=== PATIENT | male | born 1960 | race Caucasian/White ===

== ENCOUNTER 2017-12-19 14:14 | Inpatient (IN) | payer BC ==
[2017-12-19] MEDS ORDERED: LORazepam 1 MG TABLET PO (15:00)
[2017-12-19] MEDS: IV NORMAL SALINE 1000ML BAG 1,000 ML IV (15:12)
[2017-12-19] MEDS: chlordiazePOXIDE HCL 25 MG CAPSULE PO ×2 (15:14→20:41)
[2017-12-19 15:53] LABS: ADD MAN DIFF? NO
[2017-12-19 16:00] LABS: BASO # 0.1 x10^3/uL (0.0-0.2); BASO % 1 % (0-3); EOS % 0 % (0-3); HEMATOCRIT 42.2 % (39.0-53.0); HEMOGLOBIN 15.3 g/dL (13.0-17.5); LYMPH # 0.5 x10^3/uL (1.0-4.8); LYMPH % 7 % (24-48); MEAN CORPUSCULAR HEMOGLOBIN 35 pg (25-35); MEAN CORPUSCULAR HGB CONC 36 g/dL (31-37); MEAN CORPUSCULAR VOLUME 97 fL (79-100); MONO # 0.2 x10^3/uL (0.0-1.1); MONO % 2 % (0-9); NEUT # 7.4 x10^3uL (1.8-7.7); NEUT % 90 % (31-73); PLATELET COUNT 123 x10^3/uL (140-400); RED BLOOD COUNT 4.33 x10^6/uL (4.30-5.70); RED CELL DISTRIBUTION WIDTH 13.2 % (11.5-14.5); WHITE BLOOD COUNT 8.2 x10^3/uL (4.0-11.0)
[2017-12-19] MEDS ORDERED: PROPOFOL 10 MG/ML (20ML) VIAL. IV (16:00)
[2017-12-19] MEDS ORDERED: SUCCINYLCHOLINE 200 MG/10 ML VIAL. (16:00)
[2017-12-19] MEDS ORDERED: IPRATRPIUM/ALBUTEROL 0.5/2.5MG 3 ML NEBU. NEB (16:00)
[2017-12-19 16:12] LABS: ALBUMIN 2.3 g/dL (3.4-5.0); ALBUMIN/GLOBULIN RATIO 0.5 (1.0-1.7); ALK PHOS 58 U/L (46-116); ALT (SGPT) 34 U/L (16-63); ANION GAP 9 (6-14); AST (SGOT) 96 U/L (15-37); BLOOD UREA NITROGEN 20 mg/dL (8-26); BUN/CREATININE RATIO 15 (6-20); CALCIUM 7.2 mg/dL (8.5-10.1); CARBON DIOXIDE 26 mmol/L (21-32); CHLORIDE 96 mmol/L (98-107); CREATININE 1.3 mg/dL (0.7-1.3); GFR 57.3; GLUCOSE 148 mg/dL (70-99); POTASSIUM 3.1 mmol/L (3.5-5.1); SODIUM 131 mmol/L (136-145); TOTAL BILIRUBIN 0.9 mg/dL (0.2-1.0)
[2017-12-19] MEDS: HALOPERIDOL LACTATE 5 MG/ML VIAL. IVP ×2 (17:17→19:30)
[2017-12-19] MEDS ORDERED: IBUPROFEN 800 MG TABLET. PO (17:30)
[2017-12-19] MEDS ORDERED: VANCOMYCIN 1 GM in IV DEXTROSE 5% 250 ML IV (17:45)
[2017-12-19] MEDS: IPRATRPIUM/ALBUTEROL 0.5/2.5MG 3 ML NEBU. NEB (18:03)
[2017-12-19 18:06] LABS: VITAMIN-B12 586 pg/mL (247-911)
[2017-12-19] MEDS: POTASSIUM CL 40MEQ IN 0.9%NACL 1,000 ML IV (18:14)
[2017-12-19] MEDS: PIPERACILLIN/TAZOBACTAM 3.375 GM in IV NORMAL SALINE 50ML 50 ML IV ×2 (18:15→23:30)
[2017-12-19] MEDS ORDERED: DEXTROSE 50% 25 GM / 50ML DISP.SYRIN. IV (18:15)
[2017-12-19] MEDS: VANCOMYCIN PER PHARMACY MC (18:21)
[2017-12-19] MEDS ORDERED: HALOPERIDOL LACTATE 5 MG/ML VIAL. IVP (20:15)
[2017-12-19] MEDS: ACETAMINOPHEN 325 MG TABLET. PO (20:41)
[2017-12-19] MEDS: ZOLPIDEM 5 MG TABLET. PO (20:41)
[2017-12-19] MEDS: OLANZapine 5 MG TABLET PO (20:41)
[2017-12-19] MEDS: LACTOBACILLUS RHAMNOSUS GG 1 CAPSULE. PO (20:41)
[2017-12-19] MEDS: ACYCLOVIR SODIUM IV (21:58)
[2017-12-19] MEDS: NORMAL SALINE IV (21:58)
[2017-12-19] MEDS: VANCOMYCIN 1.5 GM in IV 1/2 NORMAL SALINE 500 ML IV (21:58)
[2017-12-19 22:35] LABS: BARBITURATES NEG (NEG); BENZODIAZEPINES NEG (NEG); CANNABINOIDS NEG (NEG); COCAINE NEG (NEG); METHADONE NEG (NEG); OPIATES POS (NEG); PHENCYCLIDINE NEG (NEG)
[2017-12-19 22:37] LABS: AMPHETAMINE/METHAMPHETAMINE NEG (NEG); ETHANOL, URINE NEG (NEG)
[2017-12-20] MEDS: IPRATRPIUM/ALBUTEROL 0.5/2.5MG 3 ML NEBU. NEB ×5 (00:10→20:01)
[2017-12-20] MEDS: HALOPERIDOL LACTATE 5 MG/ML VIAL. IVP (01:48)
[2017-12-20 01:53] LABS: BASE EXCESS ABG -2 mmol/L (-3-3); HCO3 ABG 21 mmol/L (21-28); PCO2 ABG 31 mmHg (35-46); PH ABG 7.46 (7.35-7.45); PO2 ABG 72 mmHg (75-108); SAT O2 ABG 95 % (92-99)
[2017-12-20 01:57] LABS: FIO2 ABG 70
[2017-12-20] MEDS ORDERED: fentaNYL PF VIAL 100 MCG/2 ML VIAL IV ×2 (02:15)
[2017-12-20] MEDS ORDERED: PROPOFOL 100 ML IV ×2 (02:15)
[2017-12-20] MEDS: PROPOFOL 100 ML IV ×6 (03:18→20:04)
[2017-12-20] MEDS: ACETAMINOPHEN 325 MG TABLET. PO ×2 (04:27→10:14)
[2017-12-20] MEDS: chlordiazePOXIDE HCL 25 MG CAPSULE PO ×4 (04:27→21:00)
[2017-12-20 04:41] LABS: BASO % 0 % (0-3); EOS % 0 % (0-3); HEMATOCRIT 37.1 % (39.0-53.0); HEMOGLOBIN 13.2 g/dL (13.0-17.5); LYMPH # 0.4 x10^3/uL (1.0-4.8); LYMPH % 5 % (24-48); MEAN CORPUSCULAR HEMOGLOBIN 35 pg (25-35); MEAN CORPUSCULAR HGB CONC 36 g/dL (31-37); MEAN CORPUSCULAR VOLUME 97 fL (79-100); MONO # 0.2 x10^3/uL (0.0-1.1); MONO % 2 % (0-9); NEUT # 7.9 x10^3uL (1.8-7.7); NEUT % 93 % (31-73); PLATELET COUNT 123 x10^3/uL (140-400); RED BLOOD COUNT 3.82 x10^6/uL (4.30-5.70); RED CELL DISTRIBUTION WIDTH 13.2 % (11.5-14.5); WHITE BLOOD COUNT 8.6 x10^3/uL (4.0-11.0)
[2017-12-20 04:50] LABS: ADD MAN DIFF? YES
[2017-12-20 04:57] LABS: ANION GAP 9 (6-14); BLOOD UREA NITROGEN 17 mg/dL (8-26); CALCIUM 7.1 mg/dL (8.5-10.1); CARBON DIOXIDE 23 mmol/L (21-32); CHLORIDE 101 mmol/L (98-107); CREATININE 1.2 mg/dL (0.7-1.3); GFR 62.9; GLUCOSE 178 mg/dL (70-99); POTASSIUM 3.7 mmol/L (3.5-5.1); SODIUM 133 mmol/L (136-145)
[2017-12-20 05:19] LABS: % BANDS 23 % (0-9); % LYMPHS 8 % (24-48); % MONOS 1 % (0-10); % SEGS 68 % (35-66)
[2017-12-20 05:20] LABS: PLT ESTIMATE DECREASED (ADEQUATE)
[2017-12-20] MEDS: PIPERACILLIN/TAZOBACTAM 3.375 GM in IV NORMAL SALINE 50ML 50 ML IV ×4 (05:25→23:20)
[2017-12-20] MEDS: ACYCLOVIR SODIUM IV ×3 (05:25→21:49)
[2017-12-20] MEDS: NORMAL SALINE IV ×3 (05:25→21:49)
[2017-12-20] MEDS: POTASSIUM CL 40MEQ IN 0.9%NACL 1,000 ML IV ×2 (05:30→14:30)
[2017-12-20] MEDS: DULoxetine HCL 30 MG CAPSULE.DR PO (07:29)
[2017-12-20] MEDS ORDERED: PANTOPRAZOLE 40 MG TABLET.DR. PO (07:30)
[2017-12-20 07:57] LABS: BASE EXCESS ABG -3 mmol/L (-3-3); HCO3 ABG 22 mmol/L (21-28); PCO2 ABG 40 mmHg (35-46); PH ABG 7.36 (7.35-7.45); PO2 ABG 65 mmHg (75-108); SAT O2 ABG 92 % (92-99)
[2017-12-20 08:00] LABS: FIO2 ABG 90
[2017-12-20] MEDS: INSULIN LISPRO 300 UNITS/3 ML INSULN.PEN. SQ ×3 (08:00→17:00)
[2017-12-20 08:39] LABS: LACTIC ACID 1.3 mmol/L (0.4-2.0)
[2017-12-20] MEDS ORDERED: THIAMINE IM 200 MG/2 ML VIAL. IM (09:00)
[2017-12-20 09:57] LABS: VANC TR 10.4 mcg/mL (10.0-20.0)
[2017-12-20] MEDS: VANCOMYCIN 1.5 GM in IV 1/2 NORMAL SALINE 500 ML IV (10:00)
[2017-12-20] MEDS: PANTOPRAZOLE IV PUSH 40 MG VIAL. IVP (10:13)
[2017-12-20] MEDS: LACTOBACILLUS RHAMNOSUS GG 1 CAPSULE. PO ×2 (10:14→21:00)
[2017-12-20] MEDS: IV NORMAL SALINE 1000ML BAG 1,000 ML IV (10:15)
[2017-12-20] MEDS: MULTIVIT INFUSN,ADULT 4,VIT K 10 ML, THIAMINE 100 MG, FOLIC ACID 1 MG in IV NORMAL SALI... IV (10:15)
[2017-12-20] MEDS: VANCOMYCIN PER PHARMACY MC ×2 (10:38→10:45)
[2017-12-20] MEDS: VANCOMYCIN 2 GM in IV 1/2 NORMAL SALINE 500 ML IV ×2 (12:45→23:20)
[2017-12-20 12:58] LABS: POC GLUCOSE 142 mg/dL (70-99)
[2017-12-20] MEDS: VECURONIUM BOLUS 10 MG VIAL. IV ×2 (13:36→19:14)
[2017-12-20 17:18] LABS: POC GLUCOSE 154 mg/dL (70-99)
[2017-12-20] MEDS: ENOXAPARIN 40 MG/0.4 ML SYRINGE. SQ (17:20)
[2017-12-20] MEDS: ZOLPIDEM 5 MG TABLET. PO (21:00)
[2017-12-20] MEDS: OLANZapine 5 MG TABLET PO (21:24)
[2017-12-21] MEDS: VECURONIUM BOLUS 10 MG VIAL. IV ×4 (00:37→23:11)
[2017-12-21] MEDS: POTASSIUM CL 40MEQ IN 0.9%NACL 1,000 ML IV ×2 (01:22→10:30)
[2017-12-21] MEDS: PROPOFOL 100 ML IV ×4 (02:53→12:22)
[2017-12-21] MEDS: ACETAMINOPHEN 325 MG TABLET. PO ×2 (03:42→16:16)
[2017-12-21 03:45] LABS: HEMATOCRIT 37.6 % (39.0-53.0); HEMOGLOBIN 13.4 g/dL (13.0-17.5); MEAN CORPUSCULAR HEMOGLOBIN 35 pg (25-35); MEAN CORPUSCULAR HGB CONC 36 g/dL (31-37); MEAN CORPUSCULAR VOLUME 100 fL (79-100); PLATELET COUNT 159 x10^3/uL (140-400); RED BLOOD COUNT 3.78 x10^6/uL (4.30-5.70); RED CELL DISTRIBUTION WIDTH 13.9 % (11.5-14.5); WHITE BLOOD COUNT 10.3 x10^3/uL (4.0-11.0)
[2017-12-21 04:16] LABS: ALBUMIN 1.6 g/dL (3.4-5.0); ALBUMIN/GLOBULIN RATIO 0.3 (1.0-1.7); ALK PHOS 61 U/L (46-116); ALT (SGPT) 30 U/L (16-63); ANION GAP 8 (6-14); AST (SGOT) 98 U/L (15-37); BLOOD UREA NITROGEN 23 mg/dL (8-26); BUN/CREATININE RATIO 16 (6-20); CALCIUM 6.6 mg/dL (8.5-10.1); CARBON DIOXIDE 24 mmol/L (21-32); CHLORIDE 105 mmol/L (98-107); CREATININE 1.4 mg/dL (0.7-1.3); GFR 52.6; GLUCOSE 189 mg/dL (70-99); SODIUM 137 mmol/L (136-145); TOTAL BILIRUBIN 1.4 mg/dL (0.2-1.0); TOTAL PROTEIN 6.2 g/dL (6.4-8.2)
[2017-12-21 04:42] LABS: POTASSIUM 4.9 mmol/L (3.5-5.1)
[2017-12-21] MEDS: PIPERACILLIN/TAZOBACTAM 3.375 GM in IV NORMAL SALINE 50ML 50 ML IV (05:38)
[2017-12-21] MEDS: ACYCLOVIR SODIUM IV ×3 (05:39→22:12)
[2017-12-21] MEDS: NORMAL SALINE IV ×3 (05:39→22:12)
[2017-12-21] MEDS: DULoxetine HCL 30 MG CAPSULE.DR PO (07:29)
[2017-12-21] MEDS: IPRATRPIUM/ALBUTEROL 0.5/2.5MG 3 ML NEBU. NEB ×4 (07:51→20:02)
[2017-12-21 08:07] LABS: POC GLUCOSE 157 mg/dL (70-99)
[2017-12-21 08:12] LABS: BASE EXCESS ABG -6 mmol/L (-3-3); HCO3 ABG 23 mmol/L (21-28); PO2 ABG 69 mmHg (75-108); SAT O2 ABG 92 % (92-99)
[2017-12-21] MEDS: PANTOPRAZOLE IV PUSH 40 MG VIAL. IVP (08:43)
[2017-12-21] MEDS: LACTOBACILLUS RHAMNOSUS GG 1 CAPSULE. PO ×2 (08:43→20:28)
[2017-12-21] MEDS: INSULIN LISPRO 300 UNITS/3 ML INSULN.PEN. SQ ×4 (08:47→23:22)
[2017-12-21] MEDS: MULTIVIT INFUSN,ADULT 4,VIT K 10 ML, THIAMINE 100 MG, FOLIC ACID 1 MG in IV NORMAL SALI... IV (09:01)
[2017-12-21] MEDS: IV NORMAL SALINE 1000ML BAG 1,000 ML IV (09:02)
[2017-12-21 09:06] LABS: FIO2 ABG 100; PCO2 ABG 62 mmHg (35-46); PH ABG 7.18 (7.35-7.45)
[2017-12-21] MEDS: MEROPENEM 500 MG in IV NORMAL SALINE 50ML 50 ML IV ×3 (12:06→23:11)
[2017-12-21 12:12] LABS: POC GLUCOSE 198 mg/dL (70-99)
[2017-12-21] MEDS: MIDAZOLAM 100mg/100ml NS BAG 100 ML IV (14:27)
[2017-12-21 17:44] LABS: POC GLUCOSE 183 mg/dL (70-99)
[2017-12-21] MEDS: ENOXAPARIN 40 MG/0.4 ML SYRINGE. SQ (18:11)
[2017-12-21] MEDS: ZOLPIDEM 5 MG TABLET. PO (20:28)
[2017-12-21] MEDS: OLANZapine 5 MG TABLET PO (20:28)
[2017-12-21 23:23] LABS: POC GLUCOSE 217 mg/dL (70-99)
[2017-12-22] MEDS: MIDAZOLAM 100mg/100ml NS BAG 100 ML IV (01:09)
[2017-12-22] MEDS ORDERED: MULTIVIT INFUSN,ADULT 4,VIT K 10 ML, THIAMINE 100 MG, FOLIC ACID 1 MG in IV NORMAL SALI... IV (01:30)
[2017-12-22] MEDS: VECURONIUM BOLUS 10 MG VIAL. IV (04:46)
[2017-12-22] MEDS: MEROPENEM 500 MG in IV NORMAL SALINE 50ML 50 ML IV ×3 (05:42→21:38)
[2017-12-22] MEDS: NORMAL SALINE IV (05:43)
[2017-12-22] MEDS: ACYCLOVIR SODIUM IV (05:43)
[2017-12-22] MEDS: INSULIN LISPRO 300 UNITS/3 ML INSULN.PEN. SQ ×3 (06:11→17:37)
[2017-12-22 06:14] LABS: POC GLUCOSE 155 mg/dL (70-99)
[2017-12-22 06:30] LABS: HEMATOCRIT 35.2 % (39.0-53.0); HEMOGLOBIN 12.2 g/dL (13.0-17.5); MEAN CORPUSCULAR HEMOGLOBIN 35 pg (25-35); MEAN CORPUSCULAR HGB CONC 35 g/dL (31-37); MEAN CORPUSCULAR VOLUME 101 fL (79-100); PLATELET COUNT 203 x10^3/uL (140-400); RED BLOOD COUNT 3.48 x10^6/uL (4.30-5.70); RED CELL DISTRIBUTION WIDTH 14.4 % (11.5-14.5); WHITE BLOOD COUNT 14.6 x10^3/uL (4.0-11.0)
[2017-12-22 06:40] LABS: INR 1.1 (0.8-1.1); PROTHROMBIN TIME PATIENT 13.5 SEC (11.7-14.0)
[2017-12-22 06:46] LABS: ALBUMIN 1.4 g/dL (3.4-5.0); ALBUMIN/GLOBULIN RATIO 0.3 (1.0-1.7); ALK PHOS 83 U/L (46-116); ALT (SGPT) 29 U/L (16-63); ANION GAP 9 (6-14); AST (SGOT) 116 U/L (15-37); BLOOD UREA NITROGEN 49 mg/dL (8-26); BUN/CREATININE RATIO 14 (6-20); CALCIUM 6.3 mg/dL (8.5-10.1); CARBON DIOXIDE 22 mmol/L (21-32); CHLORIDE 106 mmol/L (98-107); CREATININE 3.4 mg/dL (0.7-1.3); GFR 18.9; GLUCOSE 174 mg/dL (70-99); SODIUM 137 mmol/L (136-145); TOTAL BILIRUBIN 1.7 mg/dL (0.2-1.0)
[2017-12-22 06:47] LABS: AMMONIA 23 mcmol/L (11-34)
[2017-12-22 06:53] LABS: POTASSIUM 5.2 mmol/L (3.5-5.1)
[2017-12-22] MEDS: DULoxetine HCL 30 MG CAPSULE.DR PO (07:17)
[2017-12-22] MEDS: IPRATRPIUM/ALBUTEROL 0.5/2.5MG 3 ML NEBU. NEB ×4 (07:21→19:52)
[2017-12-22 07:30] LABS: BASE EXCESS ABG -10 mmol/L (-3-3); HCO3 ABG 19 mmol/L (21-28); PCO2 ABG 58 mmHg (35-46); PO2 ABG 75 mmHg (75-108); SAT O2 ABG 94 % (92-99)
[2017-12-22 08:04] LABS: FIO2 ABG 100; PH ABG 7.14 (7.35-7.45)
[2017-12-22] MEDS: MULTIVIT INFUSN,ADULT 4,VIT K 10 ML, THIAMINE 100 MG, FOLIC ACID 1 MG in IV NORMAL SALI... IV (08:07)
[2017-12-22] MEDS: LACTOBACILLUS RHAMNOSUS GG 1 CAPSULE. PO ×2 (08:08→21:37)
[2017-12-22] MEDS: PANTOPRAZOLE IV PUSH 40 MG VIAL. IVP (08:09)
[2017-12-22] MEDS: IV NORMAL SALINE 1000ML BAG 1,000 ML IV (09:04)
[2017-12-22] MEDS: METOCLOPRAMIDE HCL 10 MG/2 ML VIAL. IV ×2 (10:39→17:56)
[2017-12-22 11:46] LABS: POC GLUCOSE 186 mg/dL (70-99)
[2017-12-22] MEDS: FUROSEMIDE 100 MG/10 ML VIAL. IVP (13:23)
[2017-12-22 17:35] LABS: POC GLUCOSE 163 mg/dL (70-99)
[2017-12-22 17:54] LABS: BASE EXCESS ABG -10 mmol/L (-3-3); HCO3 ABG 17 mmol/L (21-28); PCO2 ABG 44 mmHg (35-46); PH ABG 7.22 (7.35-7.45); PO2 ABG 109 mmHg (75-108); SAT O2 ABG 98 % (92-99)
[2017-12-22 17:57] LABS: FIO2 ABG 100
[2017-12-22] MEDS: ENOXAPARIN 30 MG/0.3 ML SYRINGE. SQ (17:58)
[2017-12-22] MEDS: ZOLPIDEM 5 MG TABLET. PO (20:26)
[2017-12-22] MEDS: CHLORHEXIDINE 0.12% 15 ML MOUTHWASH. MM (21:37)
[2017-12-22] MEDS: OLANZapine 5 MG TABLET PO (21:37)
[2017-12-23] MEDS: METOCLOPRAMIDE HCL 10 MG/2 ML VIAL. IV ×5 (00:30→23:41)
[2017-12-23 00:42] LABS: POC GLUCOSE 180 mg/dL (70-99)
[2017-12-23] MEDS: MIDAZOLAM 100mg/100ml NS BAG 100 ML IV (05:01)
[2017-12-23] MEDS: INSULIN LISPRO 300 UNITS/3 ML INSULN.PEN. SQ ×5 (06:00→23:40)
[2017-12-23 06:05] LABS: POC GLUCOSE 142 mg/dL (70-99)
[2017-12-23] MEDS: MEROPENEM 500 MG in IV NORMAL SALINE 50ML 50 ML IV (06:06)
[2017-12-23 06:36] LABS: ALBUMIN 1.2 g/dL (3.4-5.0); ALBUMIN/GLOBULIN RATIO 0.3 (1.0-1.7); ALK PHOS 121 U/L (46-116); ALT (SGPT) 30 U/L (16-63); ANION GAP 12 (6-14); AST (SGOT) 122 U/L (15-37); BLOOD UREA NITROGEN 77 mg/dL (8-26); BUN/CREATININE RATIO 14 (6-20); CALCIUM 6.3 mg/dL (8.5-10.1); CARBON DIOXIDE 21 mmol/L (21-32); CHLORIDE 104 mmol/L (98-107); CREATININE 5.5 mg/dL (0.7-1.3); GFR 10.8; GLUCOSE 154 mg/dL (70-99); SODIUM 137 mmol/L (136-145); TOTAL BILIRUBIN 1.8 mg/dL (0.2-1.0); TOTAL PROTEIN 5.9 g/dL (6.4-8.2)
[2017-12-23] MEDS: VECURONIUM BOLUS 10 MG VIAL. IV ×2 (07:06→11:44)
[2017-12-23] MEDS: MULTIVIT INFUSN,ADULT 4,VIT K 10 ML, THIAMINE 100 MG, FOLIC ACID 1 MG in IV NORMAL SALI... IV (07:21)
[2017-12-23] MEDS: PANTOPRAZOLE IV PUSH 40 MG VIAL. IVP (07:23)
[2017-12-23] MEDS: CHLORHEXIDINE 0.12% 15 ML MOUTHWASH. MM ×2 (07:24→21:34)
[2017-12-23 08:11] LABS: BASO # 0.1 x10^3/uL (0.0-0.2); BASO % 1 % (0-3); EOS % 0 % (0-3); HEMATOCRIT 32.8 % (39.0-53.0); HEMOGLOBIN 11.2 g/dL (13.0-17.5); LYMPH # 0.5 x10^3/uL (1.0-4.8); LYMPH % 3 % (24-48); MEAN CORPUSCULAR HEMOGLOBIN 34 pg (25-35); MEAN CORPUSCULAR HGB CONC 34 g/dL (31-37); MEAN CORPUSCULAR VOLUME 101 fL (79-100); MONO # 0.1 x10^3/uL (0.0-1.1); MONO % 1 % (0-9); NEUT # 13.7 x10^3uL (1.8-7.7); NEUT % 95 % (31-73); PLATELET COUNT 228 x10^3/uL (140-400); RED BLOOD COUNT 3.24 x10^6/uL (4.30-5.70); RED CELL DISTRIBUTION WIDTH 15.1 % (11.5-14.5); WHITE BLOOD COUNT 14.4 x10^3/uL (4.0-11.0)
[2017-12-23 08:21] LABS: ADD MAN DIFF? YES
[2017-12-23] MEDS: IPRATRPIUM/ALBUTEROL 0.5/2.5MG 3 ML NEBU. NEB ×4 (08:30→19:59)
[2017-12-23 09:00] LABS: BASE EXCESS ABG -11 mmol/L (-3-3); HCO3 ABG 19 mmol/L (21-28); PCO2 ABG 56 mmHg (35-46); PO2 ABG 146 mmHg (75-108); SAT O2 ABG 99 % (92-99)
[2017-12-23] MEDS: DULoxetine HCL 30 MG CAPSULE.DR PO (09:00)
[2017-12-23] MEDS: LACTOBACILLUS RHAMNOSUS GG 1 CAPSULE. PO ×2 (09:00→21:34)
[2017-12-23 09:06] LABS: CREATINE KINASE 220 U/L (39-308)
[2017-12-23] MEDS: IV NORMAL SALINE 1000ML BAG 1,000 ML IV (09:09)
[2017-12-23] MEDS: NOREPINEPHRIN 8MG/250ML PREMIX 250 ML IV (09:18)
[2017-12-23 09:26] LABS: PH ABG 7.14 (7.35-7.45)
[2017-12-23 09:27] LABS: FIO2 ABG 100
[2017-12-23 10:16] LABS: % BANDS 29 % (0-9); % LYMPHS 5 % (24-48); % SEGS 66 % (35-66)
[2017-12-23 10:19] LABS: PLT ESTIMATE ADEQUATE (ADEQUATE)
[2017-12-23 10:20] LABS: ANISOCYTOSIS SLIGHT
[2017-12-23] MEDS: LIDOCAINE WITH 8.4% SOD BICARB 3 ML DISP.SYRIN. INJ (11:30)
[2017-12-23] MEDS ORDERED: LIDOCAINE WITH 8.4% SOD BICARB 3 ML DISP.SYRIN. (11:33)
[2017-12-23] MEDS ORDERED: HEPARIN for IV BOLUS 10,000 UNIT/10 ML VIAL. (11:33)
[2017-12-23 11:45] LABS: POC GLUCOSE 168 mg/dL (70-99)
[2017-12-23] MEDS: ALBUMIN HUMAN 25% 100 ML IV ×2 (14:10→21:34)
[2017-12-23 14:28] LABS: BILIRUBIN,URINE NEGATIVE (NEG); CLARITY,URINE CLOUDY; COLOR,URINE DK YELLOW; GLUCOSE,URINE 100 mg/dL (NEG); NITRITE,URINE NEGATIVE (NEG); PROTEIN,URINE 100 mg/dL (NEG-TRACE); UROBILINOGEN,URINE 0.2 mg/dL (0.2 mg/dL)
[2017-12-23 14:33] LABS: BACTERIA,URINE FEW /HPF (0-FEW); SQUAMOUS EPITHELIAL CELL,UR FEW /LPF
[2017-12-23] MEDS ORDERED: IV NORMAL SALINE 1000ML BAG 1,000 ML IV ×2 (15:34)
[2017-12-23] MEDS ORDERED: DIALYSIS PATIENT. MC ×2 (15:45)
[2017-12-23 17:40] LABS: POC GLUCOSE 128 mg/dL (70-99)
[2017-12-23] MEDS: ZOLPIDEM 5 MG TABLET. PO (19:56)
[2017-12-23] MEDS: OLANZapine 5 MG TABLET PO (21:34)
[2017-12-23] MEDS: HEPARIN PF for SUB-Q USE 5,000 UNIT/0.5 ML VIAL. SQ (21:35)
[2017-12-23 23:44] LABS: POC GLUCOSE 126 mg/dL (70-99)
[2017-12-24] MEDS: MIDAZOLAM 100mg/100ml NS BAG 100 ML IV (03:12)
[2017-12-24] MEDS: VECURONIUM BOLUS 10 MG VIAL. IV ×4 (03:56→18:04)
[2017-12-24 04:34] LABS: HEMATOCRIT 30.8 % (39.0-53.0); HEMOGLOBIN 10.7 g/dL (13.0-17.5); MEAN CORPUSCULAR HEMOGLOBIN 35 pg (25-35); MEAN CORPUSCULAR HGB CONC 35 g/dL (31-37); MEAN CORPUSCULAR VOLUME 100 fL (79-100); PLATELET COUNT 214 x10^3/uL (140-400); RED CELL DISTRIBUTION WIDTH 14.7 % (11.5-14.5); WHITE BLOOD COUNT 13.5 x10^3/uL (4.0-11.0)
[2017-12-24 05:41] LABS: ALBUMIN 1.7 g/dL (3.4-5.0); ALBUMIN/GLOBULIN RATIO 0.4 (1.0-1.7); ALK PHOS 153 U/L (46-116); ALT (SGPT) 28 U/L (16-63); AST (SGOT) 125 U/L (15-37); BLOOD UREA NITROGEN 78 mg/dL (8-26); BUN/CREATININE RATIO 15 (6-20); CARBON DIOXIDE 25 mmol/L (21-32); CREATININE 5.3 mg/dL (0.7-1.3); GFR 11.3; GLUCOSE 151 mg/dL (70-99); TOTAL BILIRUBIN 2.3 mg/dL (0.2-1.0); TOTAL PROTEIN 5.9 g/dL (6.4-8.2)
[2017-12-24] MEDS: INSULIN LISPRO 300 UNITS/3 ML INSULN.PEN. SQ ×3 (06:00→18:00)
[2017-12-24 06:06] LABS: ANION GAP 12 (6-14); CHLORIDE 104 mmol/L (98-107); POTASSIUM 4.6 mmol/L (3.5-5.1); SODIUM 141 mmol/L (136-145)
[2017-12-24] MEDS: METOCLOPRAMIDE HCL 10 MG/2 ML VIAL. IV ×3 (06:17→18:06)
[2017-12-24] MEDS: HEPARIN PF for SUB-Q USE 5,000 UNIT/0.5 ML VIAL. SQ ×3 (06:17→20:47)
[2017-12-24] MEDS: IPRATRPIUM/ALBUTEROL 0.5/2.5MG 3 ML NEBU. NEB ×4 (07:25→19:31)
[2017-12-24] MEDS: PANTOPRAZOLE IV PUSH 40 MG VIAL. IVP (07:30)
[2017-12-24 08:29] LABS: BASE EXCESS ABG -7 mmol/L (-3-3); HCO3 ABG 21 mmol/L (21-28); PCO2 ABG 56 mmHg (35-46); PO2 ABG 91 mmHg (75-108); SAT O2 ABG 95 % (92-99)
[2017-12-24] MEDS: MEROPENEM 500 MG in IV NORMAL SALINE 50ML 50 ML IV (09:00)
[2017-12-24] MEDS: ALBUMIN HUMAN 25% 100 ML IV ×3 (09:00→20:41)
[2017-12-24] MEDS: LACTOBACILLUS RHAMNOSUS GG 1 CAPSULE. PO ×2 (09:00→20:41)
[2017-12-24] MEDS: MULTIVITAMIN with MINERAL TABLET. PO (09:00)
[2017-12-24] MEDS: FOLIC ACID 1 MG TABLET. PO (09:00)
[2017-12-24] MEDS: THIAMINE 100 MG TABLET. PO (09:00)
[2017-12-24] MEDS: DULoxetine HCL 30 MG CAPSULE.DR PO (09:00)
[2017-12-24] MEDS: CHLORHEXIDINE 0.12% 15 ML MOUTHWASH. MM ×2 (09:00→20:41)
[2017-12-24] MEDS: IV NORMAL SALINE 1000ML BAG 1,000 ML IV (09:09)
[2017-12-24 09:26] LABS: FIO2 ABG 80
[2017-12-24] MEDS ORDERED: IV NORMAL SALINE 1000ML BAG 1,000 ML IV (10:25)
[2017-12-24] MEDS ORDERED: DIALYSIS PATIENT. MC ×2 (10:30)
[2017-12-24] MEDS ORDERED: 0.9 % SODIUM CHLORIDE 10 ML DISP.SYRIN. IV ×2 (10:30)
[2017-12-24 12:07] LABS: POC GLUCOSE 115 mg/dL (70-99)
[2017-12-24 18:03] LABS: POC GLUCOSE 126 mg/dL (70-99)
[2017-12-24 18:28] LABS: BASE EXCESS ABG -2 mmol/L (-3-3); HCO3 ABG 27 mmol/L (21-28); PO2 ABG 81 mmHg (75-108); SAT O2 ABG 94 % (92-99)
[2017-12-24 18:30] LABS: FIO2 ABG 100; PCO2 ABG 63 mmHg (35-46); PH ABG 7.24 (7.35-7.45)
[2017-12-24] MEDS: ACETAMINOPHEN 650 MG/20.3 ML SOLUTION. PEG (18:32)
[2017-12-24 18:44] LABS: HEMATOCRIT 31.2 % (39.0-53.0); HEMOGLOBIN 10.8 g/dL (13.0-17.5); MEAN CORPUSCULAR HEMOGLOBIN 34 pg (25-35); MEAN CORPUSCULAR HGB CONC 35 g/dL (31-37); MEAN CORPUSCULAR VOLUME 99 fL (79-100); PLATELET COUNT 198 x10^3/uL (140-400); RED BLOOD COUNT 3.15 x10^6/uL (4.30-5.70); RED CELL DISTRIBUTION WIDTH 14.9 % (11.5-14.5); WHITE BLOOD COUNT 13.8 x10^3/uL (4.0-11.0)
[2017-12-24 18:50] LABS: ANION GAP 11 (6-14); BLOOD UREA NITROGEN 59 mg/dL (8-26); BUN/CREATININE RATIO 15 (6-20); CALCIUM 7.1 mg/dL (8.5-10.1); CARBON DIOXIDE 27 mmol/L (21-32); CHLORIDE 103 mmol/L (98-107); GFR 15.7; GLUCOSE 142 mg/dL (70-99); POTASSIUM 4.6 mmol/L (3.5-5.1); SODIUM 141 mmol/L (136-145)
[2017-12-24 18:56] LABS: ALBUMIN/GLOBULIN RATIO 0.5 (1.0-1.7); ALK PHOS 153 U/L (46-116); ALT (SGPT) 32 U/L (16-63); AST (SGOT) 130 U/L (15-37); TOTAL BILIRUBIN 2.6 mg/dL (0.2-1.0); TOTAL PROTEIN 6.3 g/dL (6.4-8.2)
[2017-12-24 18:57] LABS: INR 1.1 (0.8-1.1); PROTHROMBIN TIME PATIENT 13.5 SEC (11.7-14.0)
[2017-12-24 18:59] LABS: LACTIC ACID 1.2 mmol/L (0.4-2.0)
[2017-12-24] MEDS: ZOLPIDEM 5 MG TABLET. PO (20:00)
[2017-12-24] MEDS: OLANZapine 5 MG TABLET PO (20:41)
[2017-12-25] MEDS: METOCLOPRAMIDE HCL 10 MG/2 ML VIAL. IV ×5 (00:19→23:44)
[2017-12-25 00:20] LABS: POC GLUCOSE 140 mg/dL (70-99)
[2017-12-25] MEDS: MIDAZOLAM 100mg/100ml NS BAG 100 ML IV ×2 (00:20→20:13)
[2017-12-25] MEDS: VECURONIUM BOLUS 10 MG VIAL. IV (05:31)
[2017-12-25] MEDS: HEPARIN PF for SUB-Q USE 5,000 UNIT/0.5 ML VIAL. SQ ×2 (05:41→14:00)
[2017-12-25] MEDS: INSULIN LISPRO 300 UNITS/3 ML INSULN.PEN. SQ ×5 (06:00→23:44)
[2017-12-25 06:17] LABS: POC GLUCOSE 135 mg/dL (70-99)
[2017-12-25] MEDS: IPRATRPIUM/ALBUTEROL 0.5/2.5MG 3 ML NEBU. NEB ×4 (07:43→19:34)
[2017-12-25 07:58] LABS: BASE EXCESS ABG -4 mmol/L (-3-3); HCO3 ABG 24 mmol/L (21-28); PH ABG 7.22 (7.35-7.45); PO2 ABG 84 mmHg (75-108); SAT O2 ABG 94 % (92-99)
[2017-12-25 08:00] LABS: FIO2 ABG 100; PCO2 ABG 61 mmHg (35-46)
[2017-12-25] MEDS: THIAMINE 100 MG TABLET. PO (08:54)
[2017-12-25] MEDS: CHLORHEXIDINE 0.12% 15 ML MOUTHWASH. MM ×2 (08:54→21:03)
[2017-12-25] MEDS: FOLIC ACID 1 MG TABLET. PO (08:54)
[2017-12-25] MEDS: PANTOPRAZOLE IV PUSH 40 MG VIAL. IVP (08:54)
[2017-12-25] MEDS: MULTIVITAMIN with MINERAL TABLET. PO (08:54)
[2017-12-25] MEDS: LACTOBACILLUS RHAMNOSUS GG 1 CAPSULE. PO ×2 (08:54→21:00)
[2017-12-25] MEDS: ALBUMIN HUMAN 25% 100 ML IV (08:56)
[2017-12-25] MEDS: DULoxetine HCL 30 MG CAPSULE.DR PO (08:56)
[2017-12-25] MEDS: MEROPENEM 500 MG in IV NORMAL SALINE 50ML 50 ML IV (08:57)
[2017-12-25] MEDS: IV NORMAL SALINE 1000ML BAG 1,000 ML IV (09:09)
[2017-12-25] MEDS ORDERED: TPN PER PHARMACY MC (10:00)
[2017-12-25] MEDS ORDERED: POTASSIUM PHOSPHATE DIBASIC 13.6 MMOL in IV NORMAL SALINE 100ML 100 ML IV (10:15)
[2017-12-25 10:47] LABS: BLOOD UREA NITROGEN 90 mg/dL (8-26); CALCIUM 7.1 mg/dL (8.5-10.1); CARBON DIOXIDE 25 mmol/L (21-32); CHLORIDE 101 mmol/L (98-107); CREATININE 5.4 mg/dL (0.7-1.3); GFR 11.1; GLUCOSE 158 mg/dL (70-99); SODIUM 141 mmol/L (136-145)
[2017-12-25 10:48] LABS: ANION GAP 15 (6-14)
[2017-12-25 10:50] LABS: LIPASE 807 U/L (73-393)
[2017-12-25 10:51] LABS: MAGNESIUM 2.8 mg/dL (1.8-2.4); PHOSPHORUS 6.4 mg/dL (2.6-4.7)
[2017-12-25] MEDS: TPN PER PHARMACY MC (13:39)
[2017-12-25] MEDS: MAGNESIUM SULFATE IV ×7 (14:36→21:25)
[2017-12-25] MEDS: SODIUM BICARBONATE VIAL 75 MEQ in IV 1/2 NORMAL SALINE 1,000 ML IV ×5 (14:36→22:31)
[2017-12-25] MEDS: [UNRECOGNIZED DRUG - OTHER] IV ×5 (14:36→19:39)
[2017-12-25] MEDS: CALCIUM CHLORIDE IV ×7 (14:36→21:25)
[2017-12-25] MEDS: POTASSIUM CHLORIDE IV ×7 (14:36→21:25)
[2017-12-25] MEDS: HEPARIN 25,000UTS/500ML PREMIX 500 ML IV (15:29)
[2017-12-25 15:35] LABS: POC GLUCOSE 137 mg/dL (70-99)
[2017-12-25] MEDS: MEROPENEM 1 GM in IV NORMAL SALINE 100ML 100 ML IV (17:31)
[2017-12-25 17:40] LABS: POC GLUCOSE 99 mg/dL (70-99)
[2017-12-25 19:44] LABS: ANION GAP 10 (6-14); CARBON DIOXIDE 28 mmol/L (21-32); CHLORIDE 103 mmol/L (98-107); POTASSIUM 4.7 mmol/L (3.5-5.1); SODIUM 141 mmol/L (136-145)
[2017-12-25 20:14] LABS: MAGNESIUM 3.4 mg/dL (1.8-2.4)
[2017-12-25 20:15] LABS: PHOSPHORUS 6.1 mg/dL (2.6-4.7)
[2017-12-25] MEDS ORDERED: CALCIUM CHLORIDE IV ×2 (20:59→21:00)
[2017-12-25] MEDS ORDERED: [UNRECOGNIZED DRUG - OTHER] IV ×2 (20:59→21:00)
[2017-12-25] MEDS ORDERED: POTASSIUM CHLORIDE IV ×2 (20:59→21:00)
[2017-12-25] MEDS ORDERED: MAGNESIUM SULFATE IV ×2 (20:59→21:00)
[2017-12-25] MEDS: ZOLPIDEM 5 MG TABLET. PO (21:00)
[2017-12-25] MEDS: OLANZapine 5 MG TABLET PO (21:00)
[2017-12-25] MEDS: [UNRECOGNIZED DRUG - OTHER] IV ×2 (21:25)
[2017-12-25 21:27] LABS: UNFRACTIONATED HEPARIN TESTING 0.12 IU/mL (0.30-0.70)
[2017-12-25] MEDS: AMINO ACID IV (21:56)
[2017-12-25] MEDS: DEXTROSE 70% IV (21:56)
[2017-12-25] MEDS: TOTAL PARENTERAL NUTRITION IV (21:56)
[2017-12-25] MEDS: [UNRECOGNIZED DRUG - OTHER] IV (21:56)
[2017-12-25 23:47] LABS: POC GLUCOSE 180 mg/dL (70-99)
[2017-12-26] MEDS: [UNRECOGNIZED DRUG - OTHER] IV (00:11)
[2017-12-26] MEDS: CALCIUM CHLORIDE IV ×17 (00:11→23:57)
[2017-12-26] MEDS: MAGNESIUM SULFATE IV ×17 (00:11→23:57)
[2017-12-26] MEDS: POTASSIUM CHLORIDE IV ×17 (00:11→23:57)
[2017-12-26 00:35] LABS: ANION GAP 6 (6-14); CARBON DIOXIDE 29 mmol/L (21-32); CHLORIDE 102 mmol/L (98-107); MAGNESIUM 3.7 mg/dL (1.8-2.4); PHOSPHORUS 5.4 mg/dL (2.6-4.7); POTASSIUM 4.3 mmol/L (3.5-5.1); SODIUM 137 mmol/L (136-145)
[2017-12-26] MEDS: SODIUM BICARBONATE VIAL 75 MEQ in IV 1/2 NORMAL SALINE 1,000 ML IV ×12 (00:42→23:25)
[2017-12-26] MEDS ORDERED: MAGNESIUM SULFATE IV ×3 (01:11→01:15)
[2017-12-26] MEDS ORDERED: [UNRECOGNIZED DRUG - OTHER] IV ×3 (01:11→01:15)
[2017-12-26] MEDS ORDERED: CALCIUM CHLORIDE IV ×3 (01:11→01:15)
[2017-12-26] MEDS ORDERED: POTASSIUM CHLORIDE IV ×3 (01:11→01:15)
[2017-12-26] MEDS: [UNRECOGNIZED DRUG - OTHER] IV ×16 (02:19→23:57)
[2017-12-26 04:03] LABS: UNFRACTIONATED HEPARIN TESTING 0.16 IU/mL (0.30-0.70)
[2017-12-26 05:37] LABS: POC GLUCOSE 186 mg/dL (70-99)
[2017-12-26] MEDS: METOCLOPRAMIDE HCL 10 MG/2 ML VIAL. IV ×4 (05:38→23:46)
[2017-12-26] MEDS: INSULIN LISPRO 300 UNITS/3 ML INSULN.PEN. SQ ×4 (05:38→23:46)
[2017-12-26 05:43] LABS: ADD MAN DIFF? NO
[2017-12-26 05:50] LABS: BASO % 0 % (0-3); EOS # 0.1 x10^3/uL (0.0-0.7); EOS % 0 % (0-3); HEMATOCRIT 32.5 % (39.0-53.0); LYMPH # 0.4 x10^3/uL (1.0-4.8); LYMPH % 2 % (24-48); MEAN CORPUSCULAR HEMOGLOBIN 34 pg (25-35); MEAN CORPUSCULAR HGB CONC 34 g/dL (31-37); MEAN CORPUSCULAR VOLUME 100 fL (79-100); MONO # 0.3 x10^3/uL (0.0-1.1); MONO % 2 % (0-9); NEUT # 14.5 x10^3uL (1.8-7.7); NEUT % 95 % (31-73); PLATELET COUNT 141 x10^3/uL (140-400); RED BLOOD COUNT 3.25 x10^6/uL (4.30-5.70); RED CELL DISTRIBUTION WIDTH 15.4 % (11.5-14.5); WHITE BLOOD COUNT 15.2 x10^3/uL (4.0-11.0)
[2017-12-26] MEDS: HEPARIN 25,000UTS/500ML PREMIX 500 ML IV ×2 (06:16→18:37)
[2017-12-26 06:21] LABS: ALBUMIN/GLOBULIN RATIO 0.5 (1.0-1.7); ALK PHOS 165 U/L (46-116); ALT (SGPT) 31 U/L (16-63); ANION GAP 9 (6-14); AST (SGOT) 90 U/L (15-37); BLOOD UREA NITROGEN 59 mg/dL (8-26); BUN/CREATININE RATIO 20 (6-20); CALCIUM 7.2 mg/dL (8.5-10.1); CARBON DIOXIDE 29 mmol/L (21-32); CHLORIDE 103 mmol/L (98-107); CREATININE 2.9 mg/dL (0.7-1.3); GFR 22.7; GLUCOSE 217 mg/dL (70-99); MAGNESIUM 3.4 mg/dL (1.8-2.4); PHOSPHORUS 4.1 mg/dL (2.6-4.7); POTASSIUM 3.9 mmol/L (3.5-5.1); SODIUM 141 mmol/L (136-145); TOTAL BILIRUBIN 1.6 mg/dL (0.2-1.0); TOTAL PROTEIN 6.3 g/dL (6.4-8.2)
[2017-12-26] MEDS: IPRATRPIUM/ALBUTEROL 0.5/2.5MG 3 ML NEBU. NEB ×4 (07:43→19:56)
[2017-12-26 08:03] LABS: BASE EXCESS ABG -2 mmol/L (-3-3); HCO3 ABG 26 mmol/L (21-28); PH ABG 7.25 (7.35-7.45); PO2 ABG 82 mmHg (75-108); SAT O2 ABG 94 % (92-99)
[2017-12-26 08:06] LABS: FIO2 ABG 100; PCO2 ABG 61 mmHg (35-46)
[2017-12-26] MEDS: PANTOPRAZOLE IV PUSH 40 MG VIAL. IVP (09:03)
[2017-12-26] MEDS: CHLORHEXIDINE 0.12% 15 ML MOUTHWASH. MM ×2 (09:04→21:26)
[2017-12-26] MEDS: MEROPENEM 1 GM in IV NORMAL SALINE 100ML 100 ML IV ×2 (09:04→21:26)
[2017-12-26] MEDS: IV NORMAL SALINE 1000ML BAG 1,000 ML IV (09:09)
[2017-12-26 11:22] LABS: ANION GAP 6 (6-14); CARBON DIOXIDE 31 mmol/L (21-32); CHLORIDE 104 mmol/L (98-107); MAGNESIUM 3.1 mg/dL (1.8-2.4); PHOSPHORUS 3.6 mg/dL (2.6-4.7); POTASSIUM 3.8 mmol/L (3.5-5.1); SODIUM 141 mmol/L (136-145)
[2017-12-26] MEDS ORDERED: SODIUM BICARB ADULT 8.4% 50 MEQ/50 ML DISP.SYRIN. (11:38)
[2017-12-26 11:58] LABS: POC GLUCOSE 176 mg/dL (70-99)
[2017-12-26] MEDS: SODIUM BICARB ADULT 8.4% 50 MEQ/50 ML DISP.SYRIN. IV (12:29)
[2017-12-26] MEDS: TPN PER PHARMACY MC (12:34)
[2017-12-26] MEDS: MIDAZOLAM 100mg/100ml NS BAG 100 ML IV (13:33)
[2017-12-26] MEDS: MINERAL OIL/PETROLATUM,WHITE OPHTH OINT 3.5GM TUBE. OU (13:34)
[2017-12-26 17:21] LABS: HBcIGM CONFIRMATION Negative (Negative); HCV ANTIBODY <0.1 s/co ratio (0.0-0.9); HEP A CONFIRMATION Negative (Negative); HEP B SURFACE ABDY Non Reactive (.); HEP B SURFACE AG Negative (Negative); HIV ANTIBODY Non Reactive (Non Reactive)
[2017-12-26] MEDS: MICONAZOLE NITRATE 2% TOPICAL CREAM 28GM TUBE. TP (17:33)
[2017-12-26 18:12] LABS: POC GLUCOSE 229 mg/dL (70-99)
[2017-12-26 18:46] LABS: UNFRACTIONATED HEPARIN TESTING 0.24 IU/mL (0.30-0.70)
[2017-12-26] MEDS: VECURONIUM BOLUS 10 MG VIAL. IV (18:48)
[2017-12-26 18:54] LABS: ANION GAP 7 (6-14); CARBON DIOXIDE 31 mmol/L (21-32); CHLORIDE 102 mmol/L (98-107); MAGNESIUM 3.1 mg/dL (1.8-2.4); PHOSPHORUS 2.3 mg/dL (2.6-4.7); POTASSIUM 3.9 mmol/L (3.5-5.1); SODIUM 140 mmol/L (136-145)
[2017-12-26] MEDS: TOTAL PARENTERAL NUTRITION IV (22:04)
[2017-12-26] MEDS: AMINO ACID IV (22:04)
[2017-12-26] MEDS: [UNRECOGNIZED DRUG - OTHER] IV (22:04)
[2017-12-26] MEDS: DEXTROSE 70% IV (22:04)
[2017-12-26 23:42] LABS: POC GLUCOSE 214 mg/dL (70-99)
[2017-12-26 23:57] LABS: UNFRACTIONATED HEPARIN TESTING 0.41 IU/mL (0.30-0.70)
[2017-12-27] MEDS: CALCIUM CHLORIDE IV ×11 (00:24→20:34)
[2017-12-27] MEDS: POTASSIUM CHLORIDE IV ×11 (00:24→20:34)
[2017-12-27] MEDS: MAGNESIUM SULFATE IV ×5 (00:24→05:41)
[2017-12-27] MEDS: [UNRECOGNIZED DRUG - OTHER] IV ×5 (00:24→05:41)
[2017-12-27 00:49] LABS: ANION GAP 9 (6-14); CARBON DIOXIDE 29 mmol/L (21-32); CHLORIDE 103 mmol/L (98-107); MAGNESIUM 3.2 mg/dL (1.8-2.4); PHOSPHORUS 4.1 mg/dL (2.6-4.7); POTASSIUM 4.2 mmol/L (3.5-5.1); SODIUM 141 mmol/L (136-145)
[2017-12-27] MEDS: SODIUM BICARBONATE VIAL 75 MEQ in IV 1/2 NORMAL SALINE 1,000 ML IV ×10 (01:26→20:34)
[2017-12-27] MEDS: MIDAZOLAM 100mg/100ml NS BAG 100 ML IV (01:26)
[2017-12-27 05:44] LABS: POC GLUCOSE 228 mg/dL (70-99)
[2017-12-27] MEDS: METOCLOPRAMIDE HCL 10 MG/2 ML VIAL. IV ×3 (05:48→18:08)
[2017-12-27] MEDS: INSULIN LISPRO 300 UNITS/3 ML INSULN.PEN. SQ ×3 (05:49→18:32)
[2017-12-27] MEDS: HEPARIN 25,000UTS/500ML PREMIX 500 ML IV (05:49)
[2017-12-27 05:52] LABS: ADD MAN DIFF? NO
[2017-12-27 05:55] LABS: BASO % 0 % (0-3); EOS # 0.1 x10^3/uL (0.0-0.7); EOS % 0 % (0-3); HEMATOCRIT 33.5 % (39.0-53.0); HEMOGLOBIN 11.6 g/dL (13.0-17.5); LYMPH # 0.6 x10^3/uL (1.0-4.8); LYMPH % 5 % (24-48); MEAN CORPUSCULAR HEMOGLOBIN 35 pg (25-35); MEAN CORPUSCULAR HGB CONC 35 g/dL (31-37); MEAN CORPUSCULAR VOLUME 100 fL (79-100); MONO # 0.4 x10^3/uL (0.0-1.1); MONO % 3 % (0-9); NEUT # 13.1 x10^3uL (1.8-7.7); NEUT % 92 % (31-73); PLATELET COUNT 80 x10^3/uL (140-400); RED BLOOD COUNT 3.35 x10^6/uL (4.30-5.70); RED CELL DISTRIBUTION WIDTH 15.4 % (11.5-14.5); WHITE BLOOD COUNT 14.2 x10^3/uL (4.0-11.0)
[2017-12-27 06:27] LABS: ALBUMIN 1.7 g/dL (3.4-5.0); ALBUMIN/GLOBULIN RATIO 0.4 (1.0-1.7); ALK PHOS 172 U/L (46-116); ALT (SGPT) 27 U/L (16-63); ANION GAP 8 (6-14); AST (SGOT) 64 U/L (15-37); BLOOD UREA NITROGEN 51 mg/dL (8-26); BUN/CREATININE RATIO 23 (6-20); CALCIUM 7.7 mg/dL (8.5-10.1); CARBON DIOXIDE 29 mmol/L (21-32); CHLORIDE 103 mmol/L (98-107); CREATININE 2.2 mg/dL (0.7-1.3); GFR 31.2; GLUCOSE 243 mg/dL (70-99); LIPASE 770 U/L (73-393); MAGNESIUM 3.1 mg/dL (1.8-2.4); POTASSIUM 3.8 mmol/L (3.5-5.1); SODIUM 140 mmol/L (136-145); TOTAL BILIRUBIN 1.3 mg/dL (0.2-1.0); TOTAL PROTEIN 6.1 g/dL (6.4-8.2)
[2017-12-27] MEDS: IPRATRPIUM/ALBUTEROL 0.5/2.5MG 3 ML NEBU. NEB ×4 (08:07→19:52)
[2017-12-27 08:13] LABS: BASE EXCESS ABG -4 mmol/L (-3-3); HCO3 ABG 24 mmol/L (21-28); PCO2 ABG 57 mmHg (35-46); PH ABG 7.24 (7.35-7.45); PO2 ABG 83 mmHg (75-108); SAT O2 ABG 94 % (92-99)
[2017-12-27] MEDS: IV NORMAL SALINE 1000ML BAG 1,000 ML IV (09:09)
[2017-12-27 09:17] LABS: UNFRACTIONATED HEPARIN TESTING 0.27 IU/mL (0.30-0.70)
[2017-12-27 09:21] LABS: FIO2 ABG 70
[2017-12-27] MEDS: TPN PER PHARMACY MC ×2 (09:31→11:27)
[2017-12-27] MEDS: MEROPENEM 1 GM in IV NORMAL SALINE 100ML 100 ML IV ×2 (10:58→20:32)
[2017-12-27] MEDS: PANTOPRAZOLE IV PUSH 40 MG VIAL. IVP (10:58)
[2017-12-27] MEDS: MICONAZOLE NITRATE 2% TOPICAL CREAM 28GM TUBE. TP ×2 (10:59→20:33)
[2017-12-27] MEDS: CHLORHEXIDINE 0.12% 15 ML MOUTHWASH. MM ×2 (11:00→20:33)
[2017-12-27 11:35] LABS: POC GLUCOSE 249 mg/dL (70-99)
[2017-12-27 12:03] LABS: ANION GAP 4 (6-14); CARBON DIOXIDE 31 mmol/L (21-32); CHLORIDE 102 mmol/L (98-107); MAGNESIUM 3.3 mg/dL (1.8-2.4); PHOSPHORUS 4.3 mg/dL (2.6-4.7); POTASSIUM 3.7 mmol/L (3.5-5.1); SODIUM 137 mmol/L (136-145)
[2017-12-27] MEDS: DIALYSIS IV ×6 (17:01→20:34)
[2017-12-27 18:32] LABS: POC GLUCOSE 201 mg/dL (70-99)
[2017-12-27 18:40] LABS: ANION GAP 7 (6-14); CARBON DIOXIDE 31 mmol/L (21-32); CHLORIDE 103 mmol/L (98-107); POTASSIUM 3.6 mmol/L (3.5-5.1); SODIUM 141 mmol/L (136-145)
[2017-12-27] MEDS: TOTAL PARENTERAL NUTRITION IV (22:17)
[2017-12-27] MEDS: DEXTROSE 70% IV (22:17)
[2017-12-27] MEDS: AMINO ACID IV (22:17)
[2017-12-27] MEDS: [UNRECOGNIZED DRUG - OTHER] IV (22:17)
[2017-12-28] MEDS: METOCLOPRAMIDE HCL 10 MG/2 ML VIAL. IV ×4 (00:52→17:54)
[2017-12-28] MEDS: INSULIN LISPRO 300 UNITS/3 ML INSULN.PEN. SQ ×4 (00:53→18:30)
[2017-12-28 00:55] LABS: POC GLUCOSE 219 mg/dL (70-99)
[2017-12-28] MEDS: POTASSIUM CHLORIDE IV ×17 (00:56→22:13)
[2017-12-28] MEDS: CALCIUM CHLORIDE IV ×17 (00:56→22:13)
[2017-12-28] MEDS: DIALYSIS IV ×11 (00:56→13:18)
[2017-12-28] MEDS: SODIUM BICARBONATE VIAL 75 MEQ in IV 1/2 NORMAL SALINE 1,000 ML IV ×9 (00:59→15:37)
[2017-12-28 05:40] LABS: POC GLUCOSE 184 mg/dL (70-99)
[2017-12-28 05:50] LABS: BASO % 0 % (0-3); EOS # 0.1 x10^3/uL (0.0-0.7); EOS % 1 % (0-3); HEMATOCRIT 32.5 % (39.0-53.0); HEMOGLOBIN 11.2 g/dL (13.0-17.5); LYMPH # 0.6 x10^3/uL (1.0-4.8); LYMPH % 5 % (24-48); MEAN CORPUSCULAR HEMOGLOBIN 34 pg (25-35); MEAN CORPUSCULAR HGB CONC 34 g/dL (31-37); MEAN CORPUSCULAR VOLUME 100 fL (79-100); MONO # 0.4 x10^3/uL (0.0-1.1); MONO % 4 % (0-9); NEUT # 10.9 x10^3uL (1.8-7.7); NEUT % 90 % (31-73); PLATELET COUNT 68 x10^3/uL (140-400); RED BLOOD COUNT 3.25 x10^6/uL (4.30-5.70); RED CELL DISTRIBUTION WIDTH 15.6 % (11.5-14.5); WHITE BLOOD COUNT 12.1 x10^3/uL (4.0-11.0)
[2017-12-28 05:54] LABS: ANION GAP 7 (6-14); BLOOD UREA NITROGEN 53 mg/dL (8-26); CALCIUM 7.6 mg/dL (8.5-10.1); CARBON DIOXIDE 29 mmol/L (21-32); CHLORIDE 103 mmol/L (98-107); CREATININE 2.1 mg/dL (0.7-1.3); GLUCOSE 214 mg/dL (70-99); POTASSIUM 3.4 mmol/L (3.5-5.1); SODIUM 139 mmol/L (136-145)
[2017-12-28 06:35] LABS: ADD MAN DIFF? YES
[2017-12-28 06:47] LABS: MAGNESIUM 2.5 mg/dL (1.8-2.4)
[2017-12-28] MEDS: IPRATRPIUM/ALBUTEROL 0.5/2.5MG 3 ML NEBU. NEB ×4 (07:29→20:18)
[2017-12-28] MEDS: PANTOPRAZOLE IV PUSH 40 MG VIAL. IVP (08:15)
[2017-12-28] MEDS: CHLORHEXIDINE 0.12% 15 ML MOUTHWASH. MM ×2 (08:16→20:28)
[2017-12-28] MEDS: MICONAZOLE NITRATE 2% TOPICAL CREAM 28GM TUBE. TP ×2 (08:16→20:28)
[2017-12-28] MEDS: MEROPENEM 1 GM in IV NORMAL SALINE 100ML 100 ML IV ×2 (08:16→20:26)
[2017-12-28] MEDS: MINERAL OIL/PETROLATUM,WHITE OPHTH OINT 3.5GM TUBE. OU (08:16)
[2017-12-28] MEDS: IV NORMAL SALINE 1000ML BAG 1,000 ML IV ×5 (08:24→14:34)
[2017-12-28 08:48] LABS: BASE EXCESS ABG -3 mmol/L (-3-3); HCO3 ABG 25 mmol/L (21-28); PH ABG 7.24 (7.35-7.45); PO2 ABG 128 mmHg (75-108); SAT O2 ABG 98 % (92-99)
[2017-12-28 08:50] LABS: FIO2 ABG 70; PCO2 ABG 60 mmHg (35-46)
[2017-12-28] MEDS: MIDAZOLAM 100mg/100ml NS BAG 100 ML IV (09:54)
[2017-12-28 11:31] LABS: % BANDS 2 % (0-9); % EOS 2 % (0-5); % LYMPHS 9 % (24-48); % MYELOS 3 % (0-0); % SEGS 84 % (35-66)
[2017-12-28 11:32] LABS: ANISOCYTOSIS SLIGHT; PLT ESTIMATE DECREASED (ADEQUATE); TOXIC GRANULATION PRESENT
[2017-12-28 12:57] LABS: POC GLUCOSE 253 mg/dL (70-99)
[2017-12-28 13:14] LABS: ANION GAP 7 (6-14); CARBON DIOXIDE 30 mmol/L (21-32); CHLORIDE 101 mmol/L (98-107); MAGNESIUM 2.1 mg/dL (1.8-2.4); PHOSPHORUS 2.3 mg/dL (2.6-4.7); POTASSIUM 3.4 mmol/L (3.5-5.1); SODIUM 138 mmol/L (136-145)
[2017-12-28] MEDS: TPN PER PHARMACY MC (13:33)
[2017-12-28] MEDS: POTASSIUM PHOSPHATE DIBASIC 13.6 MMOL in IV NORMAL SALINE 100ML 100 ML IV ×2 (13:52→15:37)
[2017-12-28] MEDS: [UNRECOGNIZED DRUG - OTHER] IV ×6 (16:21→22:13)
[2017-12-28] MEDS: POTASSIUM CHLORIDE 15 MEQ in DIALYSIS SOLUTION BGK 0/2.5 5,000 ML IV ×3 (17:43→23:01)
[2017-12-28 18:27] LABS: POC GLUCOSE 194 mg/dL (70-99)
[2017-12-28 18:43] LABS: ANION GAP 7 (6-14); CARBON DIOXIDE 30 mmol/L (21-32); CHLORIDE 102 mmol/L (98-107); MAGNESIUM 2.1 mg/dL (1.8-2.4); PHOSPHORUS 3.6 mg/dL (2.6-4.7); POTASSIUM 3.8 mmol/L (3.5-5.1); SODIUM 139 mmol/L (136-145)
[2017-12-28] MEDS: VECURONIUM BOLUS 10 MG VIAL. IV (21:10)
[2017-12-28] MEDS: TOTAL PARENTERAL NUTRITION IV (22:00)
[2017-12-28] MEDS: DEXTROSE 70% IV (22:00)
[2017-12-28] MEDS: AMINO ACID IV (22:00)
[2017-12-28] MEDS: [UNRECOGNIZED DRUG - OTHER] IV (22:00)
[2017-12-29 00:13] LABS: POC GLUCOSE 281 mg/dL (70-99)
[2017-12-29] MEDS: METOCLOPRAMIDE HCL 10 MG/2 ML VIAL. IV ×5 (00:18→23:45)
[2017-12-29] MEDS: INSULIN LISPRO 300 UNITS/3 ML INSULN.PEN. SQ ×5 (00:19→23:49)
[2017-12-29 00:39] LABS: ANION GAP 7 (6-14); CARBON DIOXIDE 29 mmol/L (21-32); CHLORIDE 103 mmol/L (98-107); MAGNESIUM 2.2 mg/dL (1.8-2.4); PHOSPHORUS 4.7 mg/dL (2.6-4.7); POTASSIUM 4.5 mmol/L (3.5-5.1); SODIUM 139 mmol/L (136-145)
[2017-12-29] MEDS: POTASSIUM CHLORIDE 15 MEQ in DIALYSIS SOLUTION BGK 0/2.5 5,000 ML IV ×14 (01:31→18:01)
[2017-12-29] MEDS: MIDAZOLAM 100mg/100ml NS BAG 100 ML IV ×3 (03:43→20:08)
[2017-12-29 05:32] LABS: POC GLUCOSE 206 mg/dL (70-99)
[2017-12-29 05:41] LABS: ADD MAN DIFF? NO
[2017-12-29 05:54] LABS: ANION GAP 6 (6-14); BLOOD UREA NITROGEN 58 mg/dL (8-26); CALCIUM 7.8 mg/dL (8.5-10.1); CARBON DIOXIDE 29 mmol/L (21-32); CHLORIDE 102 mmol/L (98-107); CREATININE 2.3 mg/dL (0.7-1.3); GFR 29.7; GLUCOSE 223 mg/dL (70-99); POTASSIUM 4.2 mmol/L (3.5-5.1); SODIUM 137 mmol/L (136-145)
[2017-12-29 06:05] LABS: ALBUMIN 1.7 g/dL (3.4-5.0); ALK PHOS 186 U/L (46-116); ALT (SGPT) 29 U/L (16-63); AST (SGOT) 48 U/L (15-37); DIRECT BILIRUBIN 0.6 mg/dL (0.0-0.2); LIPASE 1229 U/L (73-393); MAGNESIUM 2.3 mg/dL (1.8-2.4); TOTAL BILIRUBIN 0.9 mg/dL (0.2-1.0); TOTAL PROTEIN 5.7 g/dL (6.4-8.2)
[2017-12-29 06:33] LABS: BASO % 0 % (0-3); EOS # 0.1 x10^3/uL (0.0-0.7); EOS % 1 % (0-3); HEMATOCRIT 29.1 % (39.0-53.0); HEMOGLOBIN 9.9 g/dL (13.0-17.5); LYMPH # 0.6 x10^3/uL (1.0-4.8); LYMPH % 6 % (24-48); MEAN CORPUSCULAR HEMOGLOBIN 35 pg (25-35); MEAN CORPUSCULAR HGB CONC 34 g/dL (31-37); MEAN CORPUSCULAR VOLUME 102 fL (79-100); MONO # 0.6 x10^3/uL (0.0-1.1); MONO % 5 % (0-9); NEUT # 9.8 x10^3uL (1.8-7.7); NEUT % 88 % (31-73); PLATELET COUNT 77 x10^3/uL (140-400); RED BLOOD COUNT 2.86 x10^6/uL (4.30-5.70); RED CELL DISTRIBUTION WIDTH 15.7 % (11.5-14.5); WHITE BLOOD COUNT 11.2 x10^3/uL (4.0-11.0)
[2017-12-29 07:45] LABS: HEPARIN INDUC PLT ABDY SEE SEPARATE REPORT
[2017-12-29] MEDS: IPRATRPIUM/ALBUTEROL 0.5/2.5MG 3 ML NEBU. NEB ×4 (08:07→20:56)
[2017-12-29 08:32] LABS: BASE EXCESS ABG -5 mmol/L (-3-3); HCO3 ABG 24 mmol/L (21-28); PO2 ABG 204 mmHg (75-108); SAT O2 ABG 99 % (92-99)
[2017-12-29 08:44] LABS: FIO2 ABG 65; PCO2 ABG 67 mmHg (35-46); PH ABG 7.18 (7.35-7.45)
[2017-12-29 08:47] LABS: POC GLUCOSE 195 mg/dL (70-99)
[2017-12-29] MEDS ORDERED: SODIUM BICARB ADULT 8.4% 50 MEQ/50 ML DISP.SYRIN. (09:09)
[2017-12-29] MEDS ORDERED: VASOPRESSIN 40 UNIT in IV NORMAL SALINE 100ML 100 ML IV (09:30)
[2017-12-29] MEDS: MICONAZOLE NITRATE 2% TOPICAL CREAM 28GM TUBE. TP ×2 (09:54→21:36)
[2017-12-29] MEDS: CHLORHEXIDINE 0.12% 15 ML MOUTHWASH. MM ×2 (09:54→21:35)
[2017-12-29] MEDS: IV NORMAL SALINE 1000ML BAG 1,000 ML IV (09:55)
[2017-12-29] MEDS: SODIUM BICARB ADULT 8.4% 50 MEQ/50 ML DISP.SYRIN. IV ×2 (10:01)
[2017-12-29] MEDS: TPN PER PHARMACY MC (11:18)
[2017-12-29] MEDS: MEROPENEM 1 GM in IV NORMAL SALINE 100ML 100 ML IV ×2 (11:31→21:36)
[2017-12-29] MEDS: PANTOPRAZOLE IV PUSH 40 MG VIAL. IVP (11:31)
[2017-12-29 13:51] LABS: POC GLUCOSE 185 mg/dL (70-99)
[2017-12-29 16:29] LABS: POC GLUCOSE 169 mg/dL (70-99)
[2017-12-29 16:55] LABS: ANION GAP 8 (6-14); CARBON DIOXIDE 29 mmol/L (21-32); CHLORIDE 104 mmol/L (98-107); MAGNESIUM 2.2 mg/dL (1.8-2.4); PHOSPHORUS 2.1 mg/dL (2.6-4.7); POTASSIUM 3.6 mmol/L (3.5-5.1); SODIUM 141 mmol/L (136-145)
[2017-12-29 18:47] LABS: POC GLUCOSE 163 mg/dL (70-99)
[2017-12-29] MEDS ORDERED: LACTOBACILLUS RHAMNOSUS GG 1 CAPSULE. PO (21:00)
[2017-12-29] MEDS: [UNRECOGNIZED DRUG - OTHER] IV (21:37)
[2017-12-29] MEDS: TOTAL PARENTERAL NUTRITION IV (21:37)
[2017-12-29] MEDS: AMINO ACID IV (21:37)
[2017-12-29] MEDS: DEXTROSE 70% IV (21:37)
[2017-12-29 23:52] LABS: POC GLUCOSE 156 mg/dL (70-99)
[2017-12-30] MEDS: METOCLOPRAMIDE HCL 10 MG/2 ML VIAL. IV ×3 (05:22→18:10)
[2017-12-30 05:40] LABS: ADD MAN DIFF? NO
[2017-12-30 05:42] LABS: BASO # 0.1 x10^3/uL (0.0-0.2); BASO % 1 % (0-3); EOS # 0.1 x10^3/uL (0.0-0.7); EOS % 1 % (0-3); HEMATOCRIT 25.2 % (39.0-53.0); HEMOGLOBIN 8.7 g/dL (13.0-17.5); LYMPH # 0.8 x10^3/uL (1.0-4.8); LYMPH % 8 % (24-48); MEAN CORPUSCULAR HEMOGLOBIN 34 pg (25-35); MEAN CORPUSCULAR HGB CONC 35 g/dL (31-37); MEAN CORPUSCULAR VOLUME 99 fL (79-100); MONO # 0.7 x10^3/uL (0.0-1.1); MONO % 7 % (0-9); NEUT # 8.4 x10^3uL (1.8-7.7); NEUT % 84 % (31-73); PLATELET COUNT 118 x10^3/uL (140-400); RED BLOOD COUNT 2.54 x10^6/uL (4.30-5.70); RED CELL DISTRIBUTION WIDTH 14.6 % (11.5-14.5)
[2017-12-30 06:02] LABS: ANION GAP 8 (6-14); BLOOD UREA NITROGEN 63 mg/dL (8-26); CALCIUM 7.6 mg/dL (8.5-10.1); CARBON DIOXIDE 27 mmol/L (21-32); CHLORIDE 104 mmol/L (98-107); CREATININE 2.5 mg/dL (0.7-1.3); GFR 26.9; GLUCOSE 176 mg/dL (70-99); POTASSIUM 3.6 mmol/L (3.5-5.1); SODIUM 139 mmol/L (136-145)
[2017-12-30 06:05] LABS: MAGNESIUM 2.2 mg/dL (1.8-2.4)
[2017-12-30 06:05] LABS: PHOSPHORUS 2.2 mg/dL (2.6-4.7)
[2017-12-30] MEDS: INSULIN LISPRO 300 UNITS/3 ML INSULN.PEN. SQ ×3 (06:10→18:09)
[2017-12-30] MEDS: NICOTINE 21MG PATCH. TD (08:12)
[2017-12-30] MEDS: PANTOPRAZOLE IV PUSH 40 MG VIAL. IVP (08:12)
[2017-12-30] MEDS: MICONAZOLE NITRATE 2% TOPICAL CREAM 28GM TUBE. TP (08:13)
[2017-12-30] MEDS: CHLORHEXIDINE 0.12% 15 ML MOUTHWASH. MM ×2 (08:13→21:18)
[2017-12-30] MEDS: IPRATRPIUM/ALBUTEROL 0.5/2.5MG 3 ML NEBU. NEB ×4 (08:56→20:10)
[2017-12-30] MEDS ORDERED: IV NORMAL SALINE 1000ML BAG 1,000 ML IV ×2 (09:07)
[2017-12-30 09:08] LABS: BASE EXCESS ABG 1 mmol/L (-3-3); HCO3 ABG 26 mmol/L (21-28); PCO2 ABG 38 mmHg (35-46); PH ABG 7.44 (7.35-7.45); PO2 ABG 74 mmHg (75-108); SAT O2 ABG 94 % (92-99)
[2017-12-30] MEDS: IV NORMAL SALINE 1000ML BAG 1,000 ML IV (09:09)
[2017-12-30 09:13] LABS: FIO2 ABG 60
[2017-12-30] MEDS ORDERED: ALBUMIN HUMAN 25% 200 ML IV (09:15)
[2017-12-30] MEDS ORDERED: 0.9 % SODIUM CHLORIDE 10 ML DISP.SYRIN. IV ×2 (09:15)
[2017-12-30] MEDS ORDERED: diphenhydrAMINE 50 MG/ML VIAL IV ×2 (09:15)
[2017-12-30] MEDS ORDERED: DIALYSIS PATIENT. MC (09:15)
[2017-12-30] MEDS: TPN PER PHARMACY MC (10:09)
[2017-12-30] MEDS: MIDAZOLAM 100mg/100ml NS BAG 100 ML IV ×2 (10:58→18:05)
[2017-12-30 14:13] LABS: POC GLUCOSE 184 mg/dL (70-99)
[2017-12-30 16:46] LABS: CLARITY,URINE CLOUDY; PROTEIN,URINE 100 mg/dL (NEG-TRACE)
[2017-12-30 17:15] LABS: BILIRUBIN,URINE SMALL (NEG); COLOR,URINE BROWN; GLUCOSE,URINE NEGATIVE (NEG); NITRITE,URINE NEGATIVE (NEG); UROBILINOGEN,URINE 0.2 mg/dL (0.2 mg/dL)
[2017-12-30 17:23] LABS: BACTERIA,URINE FEW /HPF (0-FEW); HYALINE CASTS, URINE OCCASIONAL /HPF; SQUAMOUS EPITHELIAL CELL,UR MOD /LPF
[2017-12-30 18:15] LABS: POC GLUCOSE 198 mg/dL (70-99)
[2017-12-30] MEDS: NYSTATIN TOPICAL POWDER 15GM BOTTLE. TP (21:16)
[2017-12-30] MEDS: MEROPENEM 1 GM in IV NORMAL SALINE 100ML 100 ML IV (21:17)
[2017-12-30] MEDS: TOTAL PARENTERAL NUTRITION IV (21:18)
[2017-12-30] MEDS: [UNRECOGNIZED DRUG - OTHER] IV (21:18)
[2017-12-30] MEDS: AMINO ACID IV (21:18)
[2017-12-30] MEDS: DEXTROSE 70% IV (21:18)
[2017-12-31] MEDS: METOCLOPRAMIDE HCL 10 MG/2 ML VIAL. IV ×5 (00:23→23:51)
[2017-12-31] MEDS: INSULIN LISPRO 300 UNITS/3 ML INSULN.PEN. SQ ×5 (00:25→23:55)
[2017-12-31 03:09] LABS: POC GLUCOSE 178 mg/dL (70-99)
[2017-12-31] MEDS: MIDAZOLAM 100mg/100ml NS BAG 100 ML IV ×2 (05:12→19:57)
[2017-12-31 05:29] LABS: ADD MAN DIFF? NO
[2017-12-31 05:36] LABS: BASO % 0 % (0-3); EOS # 0.1 x10^3/uL (0.0-0.7); EOS % 1 % (0-3); HEMATOCRIT 23.4 % (39.0-53.0); HEMOGLOBIN 8.3 g/dL (13.0-17.5); LYMPH % 10 % (24-48); MEAN CORPUSCULAR HEMOGLOBIN 35 pg (25-35); MEAN CORPUSCULAR HGB CONC 36 g/dL (31-37); MEAN CORPUSCULAR VOLUME 99 fL (79-100); MONO # 0.8 x10^3/uL (0.0-1.1); MONO % 8 % (0-9); NEUT # 7.4 x10^3uL (1.8-7.7); NEUT % 80 % (31-73); PLATELET COUNT 135 x10^3/uL (140-400); RED BLOOD COUNT 2.36 x10^6/uL (4.30-5.70); RED CELL DISTRIBUTION WIDTH 14.4 % (11.5-14.5); WHITE BLOOD COUNT 9.2 x10^3/uL (4.0-11.0)
[2017-12-31 05:59] LABS: ALBUMIN 1.5 g/dL (3.4-5.0); ALBUMIN/GLOBULIN RATIO 0.3 (1.0-1.7); ALK PHOS 191 U/L (46-116); ALT (SGPT) 29 U/L (16-63); ANION GAP 11 (6-14); AST (SGOT) 58 U/L (15-37); BLOOD UREA NITROGEN 74 mg/dL (8-26); BUN/CREATININE RATIO 21 (6-20); CALCIUM 8.2 mg/dL (8.5-10.1); CARBON DIOXIDE 26 mmol/L (21-32); CHLORIDE 100 mmol/L (98-107); CREATININE 3.6 mg/dL (0.7-1.3); GFR 17.7; GLUCOSE 212 mg/dL (70-99); POTASSIUM 3.2 mmol/L (3.5-5.1); SODIUM 137 mmol/L (136-145)
[2017-12-31] MEDS: NYSTATIN TOPICAL POWDER 15GM BOTTLE. TP ×2 (07:55→21:19)
[2017-12-31] MEDS: CHLORHEXIDINE 0.12% 15 ML MOUTHWASH. MM ×2 (07:55→21:19)
[2017-12-31] MEDS: PANTOPRAZOLE IV PUSH 40 MG VIAL. IVP (07:55)
[2017-12-31] MEDS: IPRATRPIUM/ALBUTEROL 0.5/2.5MG 3 ML NEBU. NEB ×4 (08:12→20:16)
[2017-12-31 08:32] LABS: BASE EXCESS ABG 2 mmol/L (-3-3); HCO3 ABG 26 mmol/L (21-28); PCO2 ABG 39 mmHg (35-46); PH ABG 7.44 (7.35-7.45); PO2 ABG 128 mmHg (75-108); SAT O2 ABG 98 % (92-99)
[2017-12-31 08:35] LABS: FIO2 ABG 60
[2017-12-31] MEDS: TPN PER PHARMACY MC ×2 (08:58→13:32)
[2017-12-31] MEDS: IV NORMAL SALINE 1000ML BAG 1,000 ML IV (09:09)
[2017-12-31] MEDS: POTASSIUM CHLORIDE 20MEQ 50 ML IV ×2 (11:30→13:00)
[2017-12-31 11:56] LABS: POC GLUCOSE 203 mg/dL (70-99)
[2017-12-31 17:45] LABS: POC GLUCOSE 188 mg/dL (70-99)
[2017-12-31] MEDS: MEROPENEM 1 GM in IV NORMAL SALINE 100ML 100 ML IV (21:19)
[2017-12-31] MEDS: DEXTROSE 70% IV (21:20)
[2017-12-31] MEDS: AMINO ACID IV (21:20)
[2017-12-31] MEDS: [UNRECOGNIZED DRUG - OTHER] IV (21:20)
[2017-12-31] MEDS: TOTAL PARENTERAL NUTRITION IV (21:20)
[2017-12-31 23:58] LABS: POC GLUCOSE 208 mg/dL (70-99)
[2018-01-01] MEDS: METOCLOPRAMIDE HCL 10 MG/2 ML VIAL. IV ×4 (05:52→23:32)
[2018-01-01 06:03] LABS: HEMATOCRIT 23.1 % (39.0-53.0); HEMOGLOBIN 8.2 g/dL (13.0-17.5); MEAN CORPUSCULAR HEMOGLOBIN 35 pg (25-35); MEAN CORPUSCULAR HGB CONC 35 g/dL (31-37); MEAN CORPUSCULAR VOLUME 99 fL (79-100); PLATELET COUNT 175 x10^3/uL (140-400); RED BLOOD COUNT 2.33 x10^6/uL (4.30-5.70); RED CELL DISTRIBUTION WIDTH 14.5 % (11.5-14.5)
[2018-01-01 06:30] LABS: ALBUMIN 1.5 g/dL (3.4-5.0); ALBUMIN/GLOBULIN RATIO 0.3 (1.0-1.7); ALK PHOS 183 U/L (46-116); ALT (SGPT) 30 U/L (16-63); ANION GAP 13 (6-14); AST (SGOT) 51 U/L (15-37); BLOOD UREA NITROGEN 118 mg/dL (8-26); BUN/CREATININE RATIO 22 (6-20); CALCIUM 8.2 mg/dL (8.5-10.1); CARBON DIOXIDE 26 mmol/L (21-32); CHLORIDE 99 mmol/L (98-107); CREATININE 5.3 mg/dL (0.7-1.3); GFR 11.3; GLUCOSE 196 mg/dL (70-99); LIPASE 1365 U/L (73-393); MAGNESIUM 2.6 mg/dL (1.8-2.4); PHOSPHORUS 7.6 mg/dL (2.6-4.7); POTASSIUM 4.3 mmol/L (3.5-5.1); SODIUM 138 mmol/L (136-145); TOTAL BILIRUBIN 0.9 mg/dL (0.2-1.0); TOTAL PROTEIN 6.4 g/dL (6.4-8.2)
[2018-01-01] MEDS: INSULIN LISPRO 300 UNITS/3 ML INSULN.PEN. SQ ×4 (07:13→23:33)
[2018-01-01] MEDS: IPRATRPIUM/ALBUTEROL 0.5/2.5MG 3 ML NEBU. NEB ×4 (07:48→19:33)
[2018-01-01] MEDS: CHLORHEXIDINE 0.12% 15 ML MOUTHWASH. MM ×2 (08:31→20:32)
[2018-01-01] MEDS: NYSTATIN TOPICAL POWDER 15GM BOTTLE. TP ×2 (08:31→20:32)
[2018-01-01] MEDS: MIDAZOLAM 100mg/100ml NS BAG 100 ML IV ×2 (08:31→19:08)
[2018-01-01] MEDS: IV NORMAL SALINE 1000ML BAG 1,000 ML IV (08:32)
[2018-01-01] MEDS: PANTOPRAZOLE IV PUSH 40 MG VIAL. IVP (08:32)
[2018-01-01 08:38] LABS: BASE EXCESS ABG -1 mmol/L (-3-3); HCO3 ABG 24 mmol/L (21-28); PCO2 ABG 39 mmHg (35-46); PO2 ABG 148 mmHg (75-108); SAT O2 ABG 99 % (92-99)
[2018-01-01 08:39] LABS: FIO2 ABG 55
[2018-01-01] MEDS: TPN PER PHARMACY MC ×2 (09:20→13:53)
[2018-01-01] MEDS ORDERED: DIALYSIS PATIENT. MC ×2 (09:30)
[2018-01-01] MEDS ORDERED: 0.9 % SODIUM CHLORIDE 10 ML DISP.SYRIN. IV ×2 (09:30)
[2018-01-01 12:57] LABS: POC GLUCOSE 165 mg/dL (70-99)
[2018-01-01 15:22] LABS: RPR Reactive (Non Reactive); RPR QUANT Non Reactive (NonRea<1:1); TREPONEMA PALLIDUM Negative (Negative)
[2018-01-01] MEDS: diphenhydrAMINE 50 MG/ML VIAL IVP ×2 (16:00→23:33)
[2018-01-01 18:29] LABS: POC GLUCOSE 204 mg/dL (70-99)
[2018-01-01] MEDS: MEROPENEM 1 GM in IV NORMAL SALINE 100ML 100 ML IV (20:29)
[2018-01-01] MEDS: AMINO ACID IV (22:11)
[2018-01-01] MEDS: DEXTROSE 70% IV (22:11)
[2018-01-01] MEDS: TOTAL PARENTERAL NUTRITION IV (22:11)
[2018-01-01] MEDS: [UNRECOGNIZED DRUG - OTHER] IV (22:11)
[2018-01-02 00:25] LABS: POC GLUCOSE 178 mg/dL (70-99)
[2018-01-02] MEDS: INSULIN LISPRO 300 UNITS/3 ML INSULN.PEN. SQ ×4 (06:00→23:59)
[2018-01-02 06:01] LABS: ADD MAN DIFF? NO
[2018-01-02] MEDS: METOCLOPRAMIDE HCL 10 MG/2 ML VIAL. IV ×4 (06:01→23:39)
[2018-01-02 06:09] LABS: BASO % 1 % (0-3); EOS # 0.1 x10^3/uL (0.0-0.7); EOS % 1 % (0-3); HEMATOCRIT 22.7 % (39.0-53.0); HEMOGLOBIN 7.9 g/dL (13.0-17.5); LYMPH # 1.1 x10^3/uL (1.0-4.8); LYMPH % 16 % (24-48); MEAN CORPUSCULAR HEMOGLOBIN 34 pg (25-35); MEAN CORPUSCULAR HGB CONC 35 g/dL (31-37); MEAN CORPUSCULAR VOLUME 99 fL (79-100); MONO # 0.9 x10^3/uL (0.0-1.1); MONO % 12 % (0-9); NEUT # 4.9 x10^3uL (1.8-7.7); NEUT % 70 % (31-73); PLATELET COUNT 189 x10^3/uL (140-400); RED BLOOD COUNT 2.29 x10^6/uL (4.30-5.70); RED CELL DISTRIBUTION WIDTH 14.5 % (11.5-14.5); WHITE BLOOD COUNT 6.9 x10^3/uL (4.0-11.0)
[2018-01-02 06:24] LABS: POC GLUCOSE 141 mg/dL (70-99)
[2018-01-02 06:31] LABS: ANION GAP 11 (6-14); BLOOD UREA NITROGEN 104 mg/dL (8-26); CALCIUM 8.4 mg/dL (8.5-10.1); CARBON DIOXIDE 28 mmol/L (21-32); CHLORIDE 99 mmol/L (98-107); CREATININE 4.6 mg/dL (0.7-1.3); GFR 13.3; GLUCOSE 159 mg/dL (70-99); MAGNESIUM 2.4 mg/dL (1.8-2.4); PHOSPHORUS 7.1 mg/dL (2.6-4.7); POTASSIUM 4.5 mmol/L (3.5-5.1); SODIUM 138 mmol/L (136-145)
[2018-01-02] MEDS: IPRATRPIUM/ALBUTEROL 0.5/2.5MG 3 ML NEBU. NEB ×4 (07:35→19:55)
[2018-01-02 07:47] LABS: BASE EXCESS ABG 3 mmol/L (-3-3); HCO3 ABG 27 mmol/L (21-28); PCO2 ABG 40 mmHg (35-46); PH ABG 7.45 (7.35-7.45); PO2 ABG 108 mmHg (75-108); SAT O2 ABG 97 % (92-99)
[2018-01-02 08:07] LABS: FIO2 ABG 55
[2018-01-02] MEDS: NYSTATIN TOPICAL POWDER 15GM BOTTLE. TP ×2 (09:09→23:38)
[2018-01-02] MEDS: MIDAZOLAM 100mg/100ml NS BAG 100 ML IV (09:10)
[2018-01-02] MEDS: HYDROCORTISONE SOD SUCC/PF 100 MG/2 ML VIAL. IV ×3 (09:10→23:38)
[2018-01-02] MEDS: IV NORMAL SALINE 1000ML BAG 1,000 ML IV (09:10)
[2018-01-02] MEDS: CHLORHEXIDINE 0.12% 15 ML MOUTHWASH. MM ×2 (09:10→23:39)
[2018-01-02] MEDS: PANTOPRAZOLE IV PUSH 40 MG VIAL. IVP (09:10)
[2018-01-02 09:55] LABS: ALBUMIN 1.5 g/dL (3.4-5.0); ALK PHOS 184 U/L (46-116); ALT (SGPT) 33 U/L (16-63); AST (SGOT) 55 U/L (15-37); DIRECT BILIRUBIN 0.4 mg/dL (0.0-0.2); LIPASE 1147 U/L (73-393); TOTAL BILIRUBIN 0.8 mg/dL (0.2-1.0); TOTAL PROTEIN 5.8 g/dL (6.4-8.2)
[2018-01-02] MEDS: TPN PER PHARMACY MC (12:28)
[2018-01-02 13:21] LABS: POC GLUCOSE 230 mg/dL (70-99)
[2018-01-02] MEDS ORDERED: IV NORMAL SALINE 1000ML BAG 1,000 ML IV (13:37)
[2018-01-02] MEDS ORDERED: 0.9 % SODIUM CHLORIDE 10 ML DISP.SYRIN. IV ×2 (13:45)
[2018-01-02] MEDS ORDERED: DIALYSIS PATIENT. MC ×2 (13:45)
[2018-01-02 18:03] LABS: POC GLUCOSE 258 mg/dL (70-99)
[2018-01-02] MEDS: AMINO ACID IV (23:00)
[2018-01-02] MEDS: [UNRECOGNIZED DRUG - OTHER] IV (23:00)
[2018-01-02] MEDS: DEXTROSE 70% IV (23:00)
[2018-01-02] MEDS: TOTAL PARENTERAL NUTRITION IV (23:00)
[2018-01-02 23:56] LABS: POC GLUCOSE 283 mg/dL (70-99)
[2018-01-03 06:10] LABS: POC GLUCOSE 333 mg/dL (70-99)
[2018-01-03] MEDS: METOCLOPRAMIDE HCL 10 MG/2 ML VIAL. IV ×4 (06:13→23:54)
[2018-01-03] MEDS: HYDROCORTISONE SOD SUCC/PF 100 MG/2 ML VIAL. IV ×3 (06:13→21:35)
[2018-01-03 06:15] LABS: ADD MAN DIFF? NO
[2018-01-03 06:23] LABS: BASO % 0 % (0-3); EOS % 0 % (0-3); HEMATOCRIT 22.3 % (39.0-53.0); HEMOGLOBIN 7.7 g/dL (13.0-17.5); LYMPH # 0.7 x10^3/uL (1.0-4.8); LYMPH % 11 % (24-48); MEAN CORPUSCULAR HEMOGLOBIN 34 pg (25-35); MEAN CORPUSCULAR HGB CONC 35 g/dL (31-37); MEAN CORPUSCULAR VOLUME 99 fL (79-100); MONO # 0.7 x10^3/uL (0.0-1.1); MONO % 11 % (0-9); NEUT # 5.1 x10^3uL (1.8-7.7); NEUT % 78 % (31-73); PLATELET COUNT 209 x10^3/uL (140-400); RED BLOOD COUNT 2.25 x10^6/uL (4.30-5.70); RED CELL DISTRIBUTION WIDTH 14.1 % (11.5-14.5); WHITE BLOOD COUNT 6.5 x10^3/uL (4.0-11.0)
[2018-01-03 06:34] LABS: ANION GAP 10 (6-14); BLOOD UREA NITROGEN 97 mg/dL (8-26); CALCIUM 7.9 mg/dL (8.5-10.1); CARBON DIOXIDE 31 mmol/L (21-32); CHLORIDE 98 mmol/L (98-107); CREATININE 3.8 mg/dL (0.7-1.3); GFR 16.6; GLUCOSE 320 mg/dL (70-99); MAGNESIUM 2.2 mg/dL (1.8-2.4); PHOSPHORUS 6.7 mg/dL (2.6-4.7); SODIUM 139 mmol/L (136-145)
[2018-01-03 06:37] LABS: POTASSIUM 5.3 mmol/L (3.5-5.1)
[2018-01-03] MEDS: INSULIN LISPRO 300 UNITS/3 ML INSULN.PEN. SQ ×4 (06:37→23:59)
[2018-01-03] MEDS: IPRATRPIUM/ALBUTEROL 0.5/2.5MG 3 ML NEBU. NEB ×4 (08:02→20:11)
[2018-01-03 08:08] LABS: BASE EXCESS ABG 4 mmol/L (-3-3); HCO3 ABG 28 mmol/L (21-28); PCO2 ABG 42 mmHg (35-46); PH ABG 7.45 (7.35-7.45); PO2 ABG 105 mmHg (75-108); SAT O2 ABG 97 % (92-99)
[2018-01-03 08:56] LABS: FIO2 ABG 45
[2018-01-03] MEDS: IV NORMAL SALINE 1000ML BAG 1,000 ML IV (09:09)
[2018-01-03] MEDS: CHLORHEXIDINE 0.12% 15 ML MOUTHWASH. MM ×2 (09:13→20:28)
[2018-01-03] MEDS: NYSTATIN TOPICAL POWDER 15GM BOTTLE. TP ×2 (09:13→20:28)
[2018-01-03] MEDS: PANTOPRAZOLE IV PUSH 40 MG VIAL. IVP (09:13)
[2018-01-03 12:05] LABS: POC GLUCOSE 381 mg/dL (70-99)
[2018-01-03] MEDS: TPN PER PHARMACY MC (13:02)
[2018-01-03] MEDS ORDERED: IV NORMAL SALINE 1000ML BAG 1,000 ML IV ×2 (15:30)
[2018-01-03] MEDS ORDERED: DIALYSIS PATIENT. MC ×2 (16:30)
[2018-01-03 18:27] LABS: POC GLUCOSE 207 mg/dL (70-99)
[2018-01-03] MEDS: MIDAZOLAM 100mg/100ml NS BAG 100 ML IV (19:34)
[2018-01-03] MEDS: DEXTROSE 70% IV (21:36)
[2018-01-03] MEDS: [UNRECOGNIZED DRUG - OTHER] IV (21:36)
[2018-01-03] MEDS: TOTAL PARENTERAL NUTRITION IV (21:36)
[2018-01-03] MEDS: AMINO ACID IV (21:36)
[2018-01-04] LABS: POC GLUCOSE 272 mg/dL (70-99)
[2018-01-04 05:15] LABS: POC GLUCOSE 337 mg/dL (70-99)
[2018-01-04] MEDS: METOCLOPRAMIDE HCL 10 MG/2 ML VIAL. IV ×4 (05:36→23:49)
[2018-01-04] MEDS: HYDROCORTISONE SOD SUCC/PF 100 MG/2 ML VIAL. IV ×2 (05:37→17:27)
[2018-01-04] MEDS: INSULIN LISPRO 300 UNITS/3 ML INSULN.PEN. SQ ×4 (05:42→23:57)
[2018-01-04 05:51] LABS: ALBUMIN 1.6 g/dL (3.4-5.0); ALBUMIN/GLOBULIN RATIO 0.3 (1.0-1.7); ALK PHOS 170 U/L (46-116); ALT (SGPT) 36 U/L (16-63); AMYLASE 80 U/L (25-115); ANION GAP 9 (6-14); AST (SGOT) 50 U/L (15-37); BLOOD UREA NITROGEN 85 mg/dL (8-26); BUN/CREATININE RATIO 27 (6-20); CALCIUM 8.1 mg/dL (8.5-10.1); CARBON DIOXIDE 32 mmol/L (21-32); CHLORIDE 99 mmol/L (98-107); CREATININE 3.1 mg/dL (0.7-1.3); GLUCOSE 332 mg/dL (70-99); LIPASE 691 U/L (73-393); PHOSPHORUS 5.6 mg/dL (2.6-4.7); POTASSIUM 4.5 mmol/L (3.5-5.1); SODIUM 140 mmol/L (136-145); TOTAL BILIRUBIN 0.6 mg/dL (0.2-1.0); TOTAL PROTEIN 6.5 g/dL (6.4-8.2); TRIGLYCERIDES 240 mg/dL (0-150)
[2018-01-04 05:57] LABS: HEMATOCRIT 21.4 % (39.0-53.0); HEMOGLOBIN 7.4 g/dL (13.0-17.5); MEAN CORPUSCULAR HGB CONC 35 g/dL (31-37)
[2018-01-04] MEDS ORDERED: LIDOCAINE 1% PF 2 ML VIAL. ID (07:00)
[2018-01-04] MEDS ORDERED: fentaNYL PF VIAL 100 MCG/2 ML VIAL IV ×2 (07:00)
[2018-01-04] MEDS ORDERED: MORPHINE SULFATE 4 MG/ML DISP.SYRIN. IV (07:00)
[2018-01-04] MEDS ORDERED: IV RINGERS,LACTATED 1000ML 1,000 ML IV (07:00)
[2018-01-04] MEDS: IPRATRPIUM/ALBUTEROL 0.5/2.5MG 3 ML NEBU. NEB ×4 (07:34→20:01)
[2018-01-04] MEDS: CHLORHEXIDINE 0.12% 15 ML MOUTHWASH. MM ×2 (07:47→21:00)
[2018-01-04] MEDS: PANTOPRAZOLE IV PUSH 40 MG VIAL. IVP (07:47)
[2018-01-04] MEDS: NYSTATIN TOPICAL POWDER 15GM BOTTLE. TP ×2 (07:48→21:37)
[2018-01-04 07:49] LABS: BASE EXCESS ABG 5 mmol/L (-3-3); HCO3 ABG 29 mmol/L (21-28); PCO2 ABG 38 mmHg (35-46); PH ABG 7.49 (7.35-7.45); PO2 ABG 101 mmHg (75-108); SAT O2 ABG 97 % (92-99)
[2018-01-04 08:06] LABS: FIO2 ABG 40
[2018-01-04] MEDS ORDERED: DIALYSIS PATIENT. MC ×2 (09:00)
[2018-01-04] MEDS: IV NORMAL SALINE 1000ML BAG 1,000 ML IV (09:09)
[2018-01-04 10:07] LABS: INR 1.1 (0.8-1.1); PROTHROMBIN TIME PATIENT 13.5 SEC (11.7-14.0)
[2018-01-04] MEDS ORDERED: BUPIVACAINE-EPI 0.25%-1:200000 50 ML VIAL. (10:20)
[2018-01-04] MEDS ORDERED: SURGICEL FIBRILLAR 1X2 EACH. (10:21)
[2018-01-04] MEDS: TPN PER PHARMACY MC (10:26)
[2018-01-04] MEDS ORDERED: ROCURONIUM 50 MG/5 ML VIAL. (12:02)
[2018-01-04] MEDS ORDERED: fentaNYL PF VIAL 100 MCG/2 ML VIAL ×2 (12:02→13:10)
[2018-01-04] MEDS ORDERED: SEVOFLURANE 61 TO 120 MINUTES. IH (12:02)
[2018-01-04] MEDS ORDERED: ESMOLOL 100 MG/10 ML VIAL. IV (13:15)
[2018-01-04 16:24] LABS: POC GLUCOSE 240 mg/dL (70-99)
[2018-01-04 16:24] LABS: POC GLUCOSE 269 mg/dL (70-99)
[2018-01-04 17:37] LABS: POC GLUCOSE 275 mg/dL (70-99)
[2018-01-04] MEDS: [UNRECOGNIZED DRUG - OTHER] IV (21:38)
[2018-01-04] MEDS: DEXTROSE 70% IV (21:38)
[2018-01-04] MEDS: AMINO ACID IV (21:38)
[2018-01-04] MEDS: TOTAL PARENTERAL NUTRITION IV (21:38)
[2018-01-04 23:57] LABS: POC GLUCOSE 318 mg/dL (70-99)
[2018-01-05] MEDS: MIDAZOLAM 100mg/100ml NS BAG 100 ML IV ×2 (00:05→15:53)
[2018-01-05 05:43] LABS: POC GLUCOSE 284 mg/dL (70-99)
[2018-01-05] MEDS: HYDROCORTISONE SOD SUCC/PF 100 MG/2 ML VIAL. IV ×2 (05:44→17:25)
[2018-01-05] MEDS: INSULIN LISPRO 300 UNITS/3 ML INSULN.PEN. SQ ×3 (05:47→17:27)
[2018-01-05 05:55] LABS: ANION GAP 9 (6-14); BLOOD UREA NITROGEN 78 mg/dL (8-26); CALCIUM 8.6 mg/dL (8.5-10.1); CARBON DIOXIDE 30 mmol/L (21-32); CHLORIDE 99 mmol/L (98-107); CREATININE 2.7 mg/dL (0.7-1.3); GFR 24.7; GLUCOSE 285 mg/dL (70-99); POTASSIUM 3.5 mmol/L (3.5-5.1); SODIUM 138 mmol/L (136-145)
[2018-01-05 06:00] LABS: MAGNESIUM 1.9 mg/dL (1.8-2.4)
[2018-01-05] MEDS: METOCLOPRAMIDE HCL 10 MG/2 ML VIAL. IV ×3 (06:06→17:25)
[2018-01-05 06:12] LABS: HEMATOCRIT 22.2 % (39.0-53.0); HEMOGLOBIN 7.6 g/dL (13.0-17.5); MEAN CORPUSCULAR HEMOGLOBIN 34 pg (25-35); MEAN CORPUSCULAR HGB CONC 35 g/dL (31-37); MEAN CORPUSCULAR VOLUME 99 fL (79-100); PLATELET COUNT 268 x10^3/uL (140-400); RED BLOOD COUNT 2.25 x10^6/uL (4.30-5.70); RED CELL DISTRIBUTION WIDTH 13.8 % (11.5-14.5); WHITE BLOOD COUNT 8.9 x10^3/uL (4.0-11.0)
[2018-01-05] MEDS: PANTOPRAZOLE IV PUSH 40 MG VIAL. IVP (07:30)
[2018-01-05] MEDS ORDERED: IV NORMAL SALINE 1000ML BAG 1,000 ML IV ×2 (08:08)
[2018-01-05] MEDS ORDERED: ALBUMIN HUMAN 25% 200 ML IV (08:15)
[2018-01-05] MEDS ORDERED: DIALYSIS PATIENT. MC ×2 (08:15)
[2018-01-05] MEDS: IPRATRPIUM/ALBUTEROL 0.5/2.5MG 3 ML NEBU. NEB ×4 (08:19→19:52)
[2018-01-05 08:39] LABS: BASE EXCESS ABG 5 mmol/L (-3-3); HCO3 ABG 27 mmol/L (21-28); PCO2 ABG 35 mmHg (35-46); PH ABG 7.52 (7.35-7.45); PO2 ABG 119 mmHg (75-108); SAT O2 ABG 98 % (92-99)
[2018-01-05 08:41] LABS: FIO2 ABG 40
[2018-01-05] MEDS: IV NORMAL SALINE 1000ML BAG 1,000 ML IV (09:09)
[2018-01-05 11:49] LABS: POC GLUCOSE 180 mg/dL (70-99)
[2018-01-05] MEDS: TPN PER PHARMACY MC (13:01)
[2018-01-05] MEDS: NYSTATIN TOPICAL POWDER 15GM BOTTLE. TP ×2 (15:34→21:14)
[2018-01-05] MEDS: CHLORHEXIDINE 0.12% 15 ML MOUTHWASH. MM ×2 (15:35→21:14)
[2018-01-05 17:54] LABS: POC GLUCOSE 266 mg/dL (70-99)
[2018-01-05] MEDS: DEXTROSE 70% IV (22:52)
[2018-01-05] MEDS: AMINO ACID IV (22:52)
[2018-01-05] MEDS: [UNRECOGNIZED DRUG - OTHER] IV (22:52)
[2018-01-05] MEDS: TOTAL PARENTERAL NUTRITION IV (22:52)
[2018-01-06] MEDS: INSULIN LISPRO 300 UNITS/3 ML INSULN.PEN. SQ ×4 (00:42→18:10)
[2018-01-06 00:44] LABS: POC GLUCOSE 319 mg/dL (70-99)
[2018-01-06] MEDS: METOCLOPRAMIDE HCL 10 MG/2 ML VIAL. IV ×4 (00:44→18:00)
[2018-01-06 05:33] LABS: POC GLUCOSE 220 mg/dL (70-99)
[2018-01-06] MEDS: HYDROCORTISONE SOD SUCC/PF 100 MG/2 ML VIAL. IV ×2 (05:34→17:44)
[2018-01-06 06:31] LABS: ANION GAP 9 (6-14); BLOOD UREA NITROGEN 78 mg/dL (8-26); CALCIUM 8.4 mg/dL (8.5-10.1); CARBON DIOXIDE 31 mmol/L (21-32); CHLORIDE 104 mmol/L (98-107); CREATININE 2.3 mg/dL (0.7-1.3); GFR 29.7; GLUCOSE 219 mg/dL (70-99); MAGNESIUM 1.8 mg/dL (1.8-2.4); PHOSPHORUS 3.5 mg/dL (2.6-4.7); POTASSIUM 3.4 mmol/L (3.5-5.1); SODIUM 144 mmol/L (136-145)
[2018-01-06] MEDS: IPRATRPIUM/ALBUTEROL 0.5/2.5MG 3 ML NEBU. NEB ×4 (07:55→19:53)
[2018-01-06 08:38] LABS: BASE EXCESS ABG 5 mmol/L (-3-3); HCO3 ABG 28 mmol/L (21-28); PCO2 ABG 34 mmHg (35-46); PH ABG 7.54 (7.35-7.45); PO2 ABG 128 mmHg (75-108); SAT O2 ABG 98 % (92-99)
[2018-01-06 08:39] LABS: FIO2 ABG 40
[2018-01-06] MEDS: TPN PER PHARMACY MC ×2 (11:17→11:37)
[2018-01-06] MEDS: PANTOPRAZOLE IV PUSH 40 MG VIAL. IVP (13:35)
[2018-01-06] MEDS: NYSTATIN TOPICAL POWDER 15GM BOTTLE. TP ×2 (13:36→22:18)
[2018-01-06] MEDS: CHLORHEXIDINE 0.12% 15 ML MOUTHWASH. MM ×2 (17:45→22:19)
[2018-01-06 17:50] LABS: POC GLUCOSE 250 mg/dL (70-99)
[2018-01-06] MEDS ORDERED: IV NORMAL SALINE 1000ML BAG 1,000 ML IV ×2 (20:11)
[2018-01-06] MEDS ORDERED: 0.9 % SODIUM CHLORIDE 10 ML DISP.SYRIN. IV ×2 (20:15)
[2018-01-06] MEDS ORDERED: DIALYSIS PATIENT. MC ×2 (20:15)
[2018-01-06] MEDS: IV NORMAL SALINE 1000ML BAG 1,000 ML IV (22:00)
[2018-01-06] MEDS: HEPARIN PF for SUB-Q USE 5,000 UNIT/0.5 ML VIAL. SQ (22:16)
[2018-01-06] MEDS: TOTAL PARENTERAL NUTRITION IV (22:17)
[2018-01-06] MEDS: AMINO ACID IV (22:17)
[2018-01-06] MEDS: [UNRECOGNIZED DRUG - OTHER] IV (22:17)
[2018-01-06] MEDS: DEXTROSE 70% IV (22:17)
[2018-01-07 00:13] LABS: POC GLUCOSE 294 mg/dL (70-99)
[2018-01-07] MEDS: METOCLOPRAMIDE HCL 10 MG/2 ML VIAL. IV ×4 (00:15→17:55)
[2018-01-07] MEDS: INSULIN LISPRO 300 UNITS/3 ML INSULN.PEN. SQ ×4 (00:17→18:00)
[2018-01-07] MEDS: HYDROCORTISONE SOD SUCC/PF 100 MG/2 ML VIAL. IV ×2 (05:33→17:56)
[2018-01-07 05:42] LABS: POC GLUCOSE 267 mg/dL (70-99)
[2018-01-07 06:08] LABS: ANION GAP 10 (6-14); BLOOD UREA NITROGEN 75 mg/dL (8-26); CALCIUM 8.4 mg/dL (8.5-10.1); CARBON DIOXIDE 29 mmol/L (21-32); CHLORIDE 104 mmol/L (98-107); CREATININE 2.1 mg/dL (0.7-1.3); GLUCOSE 267 mg/dL (70-99); MAGNESIUM 1.7 mg/dL (1.8-2.4); PHOSPHORUS 3.4 mg/dL (2.6-4.7); POTASSIUM 3.5 mmol/L (3.5-5.1); SODIUM 143 mmol/L (136-145)
[2018-01-07] MEDS: IPRATRPIUM/ALBUTEROL 0.5/2.5MG 3 ML NEBU. NEB ×4 (07:30→19:54)
[2018-01-07] MEDS: PANTOPRAZOLE IV PUSH 40 MG VIAL. IVP (08:08)
[2018-01-07 08:45] LABS: BASE EXCESS ABG 5 mmol/L (-3-3); HCO3 ABG 29 mmol/L (21-28); PCO2 ABG 39 mmHg (35-46); PH ABG 7.49 (7.35-7.45); PO2 ABG 112 mmHg (75-108); SAT O2 ABG 98 % (92-99)
[2018-01-07] MEDS: NYSTATIN TOPICAL POWDER 15GM BOTTLE. TP ×2 (08:48→21:20)
[2018-01-07] MEDS: CHLORHEXIDINE 0.12% 15 ML MOUTHWASH. MM ×2 (08:48→21:20)
[2018-01-07] MEDS: HEPARIN PF for SUB-Q USE 5,000 UNIT/0.5 ML VIAL. SQ ×2 (08:48→21:00)
[2018-01-07] MEDS: IV NORMAL SALINE 1000ML BAG 1,000 ML IV (08:51)
[2018-01-07 08:56] LABS: FIO2 ABG 40%
[2018-01-07] MEDS: TPN PER PHARMACY MC (10:24)
[2018-01-07 11:58] LABS: BILIRUBIN,URINE NEGATIVE (NEG); CLARITY,URINE CLEAR; COLOR,URINE YELLOW; GLUCOSE,URINE 500 mg/dL (NEG); NITRITE,URINE NEGATIVE (NEG); PH,URINE 5.5; PROTEIN,URINE NEGATIVE (NEG-TRACE); UROBILINOGEN,URINE 0.2 mg/dL (0.2 mg/dL)
[2018-01-07 12:07] LABS: ADD MAN DIFF? NO
[2018-01-07 12:08] LABS: POC GLUCOSE 282 mg/dL (70-99)
[2018-01-07 12:10] LABS: BASO % 0 % (0-3); EOS # 0.1 x10^3/uL (0.0-0.7); EOS % 1 % (0-3); LYMPH # 1.1 x10^3/uL (1.0-4.8); LYMPH % 12 % (24-48); MEAN CORPUSCULAR HEMOGLOBIN 34 pg (25-35); MEAN CORPUSCULAR HGB CONC 35 g/dL (31-37); MEAN CORPUSCULAR VOLUME 99 fL (79-100); MONO # 0.7 x10^3/uL (0.0-1.1); MONO % 8 % (0-9); NEUT # 7.6 x10^3uL (1.8-7.7); NEUT % 80 % (31-73); PLATELET COUNT 236 x10^3/uL (140-400); RED BLOOD COUNT 2.01 x10^6/uL (4.30-5.70); RED CELL DISTRIBUTION WIDTH 13.7 % (11.5-14.5); WHITE BLOOD COUNT 9.5 x10^3/uL (4.0-11.0)
[2018-01-07 12:11] LABS: BACTERIA,URINE FEW /HPF (0-FEW); SQUAMOUS EPITHELIAL CELL,UR OCC /LPF
[2018-01-07 12:12] LABS: YEAST,URINE PRESENT /HPF
[2018-01-07 12:17] LABS: C-REACTIVE PROTEIN 18.4 mg/L (0-3.3)
[2018-01-07 12:22] LABS: HEMOGLOBIN 6.9 g/dL (13.0-17.5)
[2018-01-07 12:24] LABS: HEMATOCRIT 19.8 % (39.0-53.0)
[2018-01-07 15:23] LABS: IMMEDIATE SPIN CROSSMATCH 1 2
[2018-01-07 18:18] LABS: POC GLUCOSE 214 mg/dL (70-99)
[2018-01-07] MEDS: TOTAL PARENTERAL NUTRITION IV (21:23)
[2018-01-07] MEDS: DEXTROSE 70% IV (21:23)
[2018-01-07] MEDS: [UNRECOGNIZED DRUG - OTHER] IV (21:23)
[2018-01-07] MEDS: AMINO ACID IV (21:23)
[2018-01-07] MEDS: HALOPERIDOL LACTATE 5 MG/ML VIAL. IVP (22:33)
[2018-01-07 23:06] LABS: HEMATOCRIT 23.8 % (39.0-53.0); HEMOGLOBIN 8.2 g/dL (13.0-17.5); MEAN CORPUSCULAR HEMOGLOBIN 34 pg (25-35); MEAN CORPUSCULAR HGB CONC 35 g/dL (31-37); MEAN CORPUSCULAR VOLUME 97 fL (79-100); PLATELET COUNT 217 x10^3/uL (140-400); RED BLOOD COUNT 2.45 x10^6/uL (4.30-5.70); RED CELL DISTRIBUTION WIDTH 15.2 % (11.5-14.5); WHITE BLOOD COUNT 9.2 x10^3/uL (4.0-11.0)
[2018-01-08] MEDS: INSULIN LISPRO 300 UNITS/3 ML INSULN.PEN. SQ ×5 (00:16→23:45)
[2018-01-08] MEDS: METOCLOPRAMIDE HCL 10 MG/2 ML VIAL. IV ×5 (00:17→23:40)
[2018-01-08 00:31] LABS: POC GLUCOSE 264 mg/dL (70-99)
[2018-01-08] MEDS: HALOPERIDOL LACTATE 5 MG/ML VIAL. IVP ×3 (01:27→20:37)
[2018-01-08] MEDS: HYDROCORTISONE SOD SUCC/PF 100 MG/2 ML VIAL. IV ×2 (05:27→17:32)
[2018-01-08 05:49] LABS: ADD MAN DIFF? NO
[2018-01-08 06:09] LABS: ALBUMIN/GLOBULIN RATIO 0.4 (1.0-1.7); ALK PHOS 172 U/L (46-116); ALT (SGPT) 59 U/L (16-63); ANION GAP 11 (6-14); AST (SGOT) 50 U/L (15-37); BLOOD UREA NITROGEN 84 mg/dL (8-26); BUN/CREATININE RATIO 40 (6-20); CARBON DIOXIDE 29 mmol/L (21-32); CHLORIDE 109 mmol/L (98-107); CREATININE 2.1 mg/dL (0.7-1.3); GLUCOSE 129 mg/dL (70-99); MAGNESIUM 1.6 mg/dL (1.8-2.4); PHOSPHORUS 4.7 mg/dL (2.6-4.7); POTASSIUM 3.3 mmol/L (3.5-5.1); SODIUM 149 mmol/L (136-145); TOTAL BILIRUBIN 0.6 mg/dL (0.2-1.0); TOTAL PROTEIN 6.5 g/dL (6.4-8.2); TRIGLYCERIDES 162 mg/dL (0-150)
[2018-01-08 06:17] LABS: BASO % 1 % (0-3); EOS # 0.4 x10^3/uL (0.0-0.7); EOS % 4 % (0-3); HEMATOCRIT 23.1 % (39.0-53.0); LYMPH # 1.6 x10^3/uL (1.0-4.8); LYMPH % 17 % (24-48); MEAN CORPUSCULAR HEMOGLOBIN 34 pg (25-35); MEAN CORPUSCULAR HGB CONC 35 g/dL (31-37); MEAN CORPUSCULAR VOLUME 97 fL (79-100); MONO # 0.8 x10^3/uL (0.0-1.1); MONO % 8 % (0-9); NEUT # 6.7 x10^3uL (1.8-7.7); NEUT % 70 % (31-73); PLATELET COUNT 226 x10^3/uL (140-400); RED BLOOD COUNT 2.39 x10^6/uL (4.30-5.70); RED CELL DISTRIBUTION WIDTH 15.6 % (11.5-14.5); WHITE BLOOD COUNT 9.5 x10^3/uL (4.0-11.0)
[2018-01-08] MEDS: IPRATRPIUM/ALBUTEROL 0.5/2.5MG 3 ML NEBU. NEB ×4 (07:58→19:58)
[2018-01-08 08:25] LABS: BASE EXCESS ABG 2 mmol/L (-3-3); HCO3 ABG 26 mmol/L (21-28); PCO2 ABG 36 mmHg (35-46); PH ABG 7.47 (7.35-7.45); PO2 ABG 90 mmHg (75-108); SAT O2 ABG 96 % (92-99)
[2018-01-08 08:34] LABS: FIO2 ABG 40
[2018-01-08] MEDS ORDERED: IV NORMAL SALINE 1000ML BAG 1,000 ML IV ×2 (08:35)
[2018-01-08] MEDS: PANTOPRAZOLE IV PUSH 40 MG VIAL. IVP (08:43)
[2018-01-08] MEDS: HEPARIN PF for SUB-Q USE 5,000 UNIT/0.5 ML VIAL. SQ ×2 (08:44→21:15)
[2018-01-08] MEDS ORDERED: ALBUMIN HUMAN 25% 200 ML IV (08:45)
[2018-01-08] MEDS ORDERED: DIALYSIS PATIENT. MC ×2 (08:45)
[2018-01-08] MEDS: IV NORMAL SALINE 1000ML BAG 1,000 ML IV (09:09)
[2018-01-08] MEDS ORDERED: ATROPINE 0.5 MG/5 ML DISP.SYRINGE. IV (11:00)
[2018-01-08] MEDS ORDERED: IV NORMAL SALINE 500ML BAG 500 ML IV (11:00)
[2018-01-08] MEDS: FUROSEMIDE 40 MG/4 ML VIAL. IVP (11:10)
[2018-01-08] MEDS: MAGNESIUM SULFATE 2GM 50 ML IV (11:13)
[2018-01-08] MEDS: CHLORHEXIDINE 0.12% 15 ML MOUTHWASH. MM ×2 (12:41→21:14)
[2018-01-08 13:06] LABS: POC GLUCOSE 202 mg/dL (70-99)
[2018-01-08] MEDS: TPN PER PHARMACY MC (13:12)
[2018-01-08] MEDS: NYSTATIN TOPICAL POWDER 15GM BOTTLE. TP ×2 (17:30→21:14)
[2018-01-08 17:38] LABS: POC GLUCOSE 168 mg/dL (70-99)
[2018-01-08] MEDS: DEXMEDETOMIDINE 200 MCG in IV NORMAL SALINE 50ML 48 ML IV ×2 (20:57→23:40)
[2018-01-08] MEDS: DARBEPOETIN ALFA 60 MCG/0.3 ML DISP.SYRIN. SQ (21:14)
[2018-01-08] MEDS: DEXTROSE 70% IV (21:16)
[2018-01-08] MEDS: [UNRECOGNIZED DRUG - OTHER] IV (21:16)
[2018-01-08] MEDS: TOTAL PARENTERAL NUTRITION IV (21:16)
[2018-01-08] MEDS: AMINO ACID IV (21:16)
[2018-01-08 23:52] LABS: POC GLUCOSE 220 mg/dL (70-99)
[2018-01-09] MEDS: DEXMEDETOMIDINE 200 MCG in IV NORMAL SALINE 50ML 48 ML IV ×3 (01:13→05:30)
[2018-01-09] MEDS: METOCLOPRAMIDE HCL 10 MG/2 ML VIAL. IV ×2 (05:28→12:00)
[2018-01-09] MEDS: HYDROCORTISONE SOD SUCC/PF 100 MG/2 ML VIAL. IV (05:30)
[2018-01-09 05:50] LABS: HEMATOCRIT 23.1 % (39.0-53.0); MEAN CORPUSCULAR HEMOGLOBIN 34 pg (25-35); MEAN CORPUSCULAR HGB CONC 35 g/dL (31-37); MEAN CORPUSCULAR VOLUME 97 fL (79-100); PLATELET COUNT 195 x10^3/uL (140-400); RED BLOOD COUNT 2.39 x10^6/uL (4.30-5.70); WHITE BLOOD COUNT 8.6 x10^3/uL (4.0-11.0)
[2018-01-09 06:26] LABS: ANION GAP 10 (6-14); BLOOD UREA NITROGEN 55 mg/dL (8-26); CALCIUM 8.8 mg/dL (8.5-10.1); CARBON DIOXIDE 29 mmol/L (21-32); CHLORIDE 104 mmol/L (98-107); CREATININE 1.7 mg/dL (0.7-1.3); GFR 42.1; GLUCOSE 207 mg/dL (70-99); POTASSIUM 3.4 mmol/L (3.5-5.1); SODIUM 143 mmol/L (136-145)
[2018-01-09] MEDS: INSULIN LISPRO 300 UNITS/3 ML INSULN.PEN. SQ (06:41)
[2018-01-09] MEDS: IPRATRPIUM/ALBUTEROL 0.5/2.5MG 3 ML NEBU. NEB ×3 (07:57→16:19)
[2018-01-09 08:13] LABS: BASE EXCESS ABG 2 mmol/L (-3-3); HCO3 ABG 25 mmol/L (21-28); PCO2 ABG 33 mmHg (35-46); PO2 ABG 129 mmHg (75-108); SAT O2 ABG 98 % (92-99)
[2018-01-09 08:15] LABS: FIO2 ABG 45
[2018-01-09] MEDS: PANTOPRAZOLE IV PUSH 40 MG VIAL. IVP (09:21)
[2018-01-09] MEDS: FUROSEMIDE 40 MG/4 ML VIAL. IVP (09:22)
[2018-01-09] MEDS: HEPARIN PF for SUB-Q USE 5,000 UNIT/0.5 ML VIAL. SQ (09:22)
[2018-01-09] MEDS: CHLORHEXIDINE 0.12% 15 ML MOUTHWASH. MM (09:23)
[2018-01-09 12:37] LABS: POC GLUCOSE 206 mg/dL (70-99)
== END 2018-01-09 17:15 | DRG 4 ==
LOC: 1 WEST ICU 14:14
PROC: 0B110F4 Bypass Trachea to Cutaneous with Tracheostomy Device, Open Approach (ICD-10-PCS; 2018-01-04 12:30)
PROC: 5A1955Z Respiratory Ventilation, Greater than 96 Consecutive Hours (ICD-10-PCS; principal; 2018-01-04 12:55)
PROC: 02HV33Z Insertion of Infusion Device into Superior Vena Cava, Percutaneous Approach (ICD-10-PCS; 2018-01-04 12:55)
PROC: B548ZZA Ultrasonography of Superior Vena Cava, Guidance (ICD-10-PCS; 2018-01-04 12:55)
PROC: 05HM33Z Insertion of Infusion Device into Right Internal Jugular Vein, Percutaneous Approach (ICD-10-PCS; 2018-01-04 12:55)
PROC: B543ZZA Ultrasonography of Right Jugular Veins, Guidance (ICD-10-PCS; 2018-01-04 12:55)
PROC: 05PYX3Z Removal of Infusion Device from Upper Vein, External Approach (ICD-10-PCS; 2018-01-04 12:55)
PROC: 05HM33Z Insertion of Infusion Device into Right Internal Jugular Vein, Percutaneous Approach (ICD-10-PCS; 2018-01-04 12:55)
PROC: 30233N1 Transfusion of Nonautologous Red Blood Cells into Peripheral Vein, Percutaneous Approach (ICD-10-PCS; 2018-01-04 12:55)
PROC: 5A09357 Assistance with Respiratory Ventilation, Less than 24 Consecutive Hours, Continuous Positive Airway Pressure (ICD-10-PCS; 2018-01-04 12:55)
PROC: 0BH17EZ Insertion of Endotracheal Airway into Trachea, Via Natural or Artificial Opening (ICD-10-PCS; 2018-01-04 12:55)
DX: J96.01 Acute respiratory failure with hypoxia (principal); K85.90 Acute pancreatitis without necrosis or infection, unspecified; J69.0 Pneumonitis due to inhalation of food and vomit; G92 Toxic encephalopathy; N17.0 Acute kidney failure with tubular necrosis; G03.0 Nonpyogenic meningitis; J90 Pleural effusion, not elsewhere classified; E87.1 Hypo-osmolality and hyponatremia; E87.0 Hyperosmolality and hypernatremia; R04.89 Hemorrhage from other sites in respiratory passages; F10.231 Alcohol dependence with withdrawal delirium; K21.0 Gastro-esophageal reflux disease with esophagitis; F41.9 Anxiety disorder, unspecified; F31.9 Bipolar disorder, unspecified; E11.43 Type 2 diabetes mellitus with diabetic autonomic (poly)neuropathy; E03.9 Hypothyroidism, unspecified; I10 Essential (primary) hypertension; F17.210 Nicotine dependence, cigarettes, uncomplicated; E66.9 Obesity, unspecified; G47.33 Obstructive sleep apnea (adult) (pediatric); K76.0 Fatty (change of) liver, not elsewhere classified; J44.9 Chronic obstructive pulmonary disease, unspecified; D75.82 Heparin induced thrombocytopenia (HIT); D64.9 Anemia, unspecified; E11.65 Type 2 diabetes mellitus with hyperglycemia; E87.6 Hypokalemia; R13.10 Dysphagia, unspecified; Z80.1 Family history of malignant neoplasm of trachea, bronchus and lung; Z99.2 Dependence on renal dialysis; Z82.49 Family history of ischemic heart disease and other diseases of the circulatory system; Z95.1 Presence of aortocoronary bypass graft; I95.9 Hypotension, unspecified
CPT/HCPCS: 36415; 36556; 36580; 36600; 70450; 71045; 74018; 74176; 76536; 76700; 76937; 80048; 80051; 80053; 80074; 80076; 80202; 80307; 81001; 82140; 82150; 82550; 82607; 82805; 82962; 83605; 83690; 83735; 84100; 84145; 84300; 84478; 85007; 85014; 85018; 85025; 85027; 85520; 85610; 86022; 86140; 86141; 86593; 86703; 86706; 86850; 86900; 86901; 86920; 87040; 87070; 87086; 87205; 87340; 93970; 94002; 94003; 94640; 94660; 95813; 95816; 97112-GP; 97163-GP; 97167-GO; 97530-GO; 97530-GP; C1769; C1892; C9113; J0133; J0330; J0610; J0881; J1200; J1630; J1650; J1720; J1815; J1940; J2020; J2060; J2185; J2250; J2543; J2704; J2765; J3010; J3370; J3475; J3480; J3490; J7030; J7050; J7620; P9016; P9046

== ENCOUNTER 2018-01-13 07:03 | Inpatient (IN) | payer BC ==
[2018-01-13] MEDS ORDERED: LIDOCAINE 1% PF 30 ML VIAL. (07:09)
[2018-01-13] MEDS ORDERED: fentaNYL PF VIAL 100 MCG/2 ML VIAL ×2 (07:32→08:56)
[2018-01-13 07:35] LABS: ADD MAN DIFF? NO
[2018-01-13 07:46] LABS: ANION GAP 12 (6-14); BLOOD UREA NITROGEN 67 mg/dL (8-26); BUN/CREATININE RATIO 48 (6-20); CALCIUM 9.1 mg/dL (8.5-10.1); CARBON DIOXIDE 26 mmol/L (21-32); CHLORIDE 116 mmol/L (98-107); CREATININE 1.4 mg/dL (0.7-1.3); GFR 52.6; GLUCOSE 233 mg/dL (70-99); POTASSIUM 3.3 mmol/L (3.5-5.1); SODIUM 154 mmol/L (136-145)
[2018-01-13] MEDS ORDERED: PROPOFOL 50 ML IV ×2 (07:46→08:56)
[2018-01-13 07:52] LABS: ALBUMIN 2.6 g/dL (3.4-5.0); ALBUMIN/GLOBULIN RATIO 0.5 (1.0-1.7); ALK PHOS 274 U/L (46-116); ALT (SGPT) 68 U/L (16-63); AST (SGOT) 33 U/L (15-37); BASO % 0 % (0-3); EOS # 0.2 x10^3/uL (0.0-0.7); EOS % 1 % (0-3); HEMATOCRIT 30.9 % (39.0-53.0); HEMOGLOBIN 10.2 g/dL (13.0-17.5); LYMPH # 1.5 x10^3/uL (1.0-4.8); LYMPH % 10 % (24-48); MEAN CORPUSCULAR HEMOGLOBIN 33 pg (25-35); MEAN CORPUSCULAR HGB CONC 33 g/dL (31-37); MEAN CORPUSCULAR VOLUME 99 fL (79-100); MONO # 1.4 x10^3/uL (0.0-1.1); MONO % 10 % (0-9); NEUT # 11.5 x10^3uL (1.8-7.7); NEUT % 79 % (31-73); PLATELET COUNT 259 x10^3/uL (140-400); RED BLOOD COUNT 3.11 x10^6/uL (4.30-5.70); RED CELL DISTRIBUTION WIDTH 15.2 % (11.5-14.5); TOTAL BILIRUBIN 0.7 mg/dL (0.2-1.0); TOTAL PROTEIN 7.9 g/dL (6.4-8.2); WHITE BLOOD COUNT 14.6 x10^3/uL (4.0-11.0)
[2018-01-13] MEDS ORDERED: MIDAZOLAM HCL/PF 5 MG/5 ML VIAL. (07:53)
[2018-01-13 08:19] LABS: INR 1.1 (0.8-1.1); PROTHROMBIN TIME PATIENT 13.5 SEC (11.7-14.0)
[2018-01-13] MEDS ORDERED: IV NORMAL SALINE 1000ML BAG 1,000 ML IV (08:21)
[2018-01-13] MEDS ORDERED: ETOMIDATE 20 MG/10 ML VIAL. IV (08:26)
[2018-01-13] MEDS ORDERED: ROCURONIUM 50 MG/5 ML VIAL. (08:26)
[2018-01-13] MEDS: IV NORMAL SALINE 1000ML BAG 1,000 ML IV (08:52)
[2018-01-13] MEDS: INSULIN LISPRO 300 UNITS/3 ML INSULN.PEN. SQ ×3 (12:30→23:22)
[2018-01-13] MEDS ORDERED: DEXTROSE 50% 25 GM / 50ML DISP.SYRIN. IV (12:30)
[2018-01-13] MEDS ORDERED: PROPOFOL 100 ML IV (12:35)
[2018-01-13] MEDS: PANTOPRAZOLE IV PUSH 40 MG VIAL. IVP (13:10)
[2018-01-13] MEDS: HEPARIN PF for SUB-Q USE 5,000 UNIT/0.5 ML VIAL. SQ ×2 (13:10→21:37)
[2018-01-13] MEDS: MIDAZOLAM 100mg/100ml NS BAG 100 ML IV (13:24)
[2018-01-13] MEDS: IV DEXTROSE 5% 1,000 ML IV ×2 (13:27→23:18)
[2018-01-13] MEDS: PROPOFOL 100 ML IV ×2 (13:27→15:58)
[2018-01-13 14:03] LABS: BASE EXCESS ABG -1 mmol/L (-3-3); HCO3 ABG 24 mmol/L (21-28); PCO2 ABG 39 mmHg (35-46); PH ABG 7.41 (7.35-7.45); PO2 ABG 103 mmHg (75-108); SAT O2 ABG 97 % (92-99)
[2018-01-13 14:06] LABS: FIO2 ABG 60
[2018-01-13] MEDS: POTASSIUM CHLORIDE 20 MEQ/15 ML ORAL LIQUID. PEG ×2 (15:59→21:50)
[2018-01-13] MEDS: PIPERACILLIN/TAZOBACTAM 2.25 GM in IV NORMAL SALINE 50ML 50 ML IV (17:53)
[2018-01-13 18:08] LABS: LACTIC ACID 1.1 mmol/L (0.4-2.0)
[2018-01-13] MEDS: ACETAMINOPHEN 650 MG/20.3 ML SOLUTION. PEG (18:24)
[2018-01-13 23:14] LABS: POC GLUCOSE 155 mg/dL (70-99)
[2018-01-13 23:14] LABS: POC GLUCOSE 137 mg/dL (70-99)
[2018-01-13 23:17] LABS: POC GLUCOSE 226 mg/dL (70-99)
[2018-01-13] MEDS: DEXTROSE 70% IV (23:17)
[2018-01-13] MEDS: [UNRECOGNIZED DRUG - OTHER] IV (23:17)
[2018-01-13] MEDS: AMINO ACID IV (23:17)
[2018-01-13] MEDS: TOTAL PARENTERAL NUTRITION IV (23:17)
[2018-01-14] MEDS: PIPERACILLIN/TAZOBACTAM 2.25 GM in IV NORMAL SALINE 50ML 50 ML IV ×4 (01:44→17:49)
[2018-01-14] MEDS: HEPARIN PF for SUB-Q USE 5,000 UNIT/0.5 ML VIAL. SQ ×3 (05:28→22:16)
[2018-01-14] MEDS: INSULIN LISPRO 300 UNITS/3 ML INSULN.PEN. SQ ×3 (05:37→17:50)
[2018-01-14 05:42] LABS: POC GLUCOSE 164 mg/dL (70-99)
[2018-01-14 06:00] LABS: PHOSPHORUS 4.5 mg/dL (2.6-4.7)
[2018-01-14 06:00] LABS: MAGNESIUM 1.6 mg/dL (1.8-2.4)
[2018-01-14 06:04] LABS: ALBUMIN 1.9 g/dL (3.4-5.0); ALBUMIN/GLOBULIN RATIO 0.4 (1.0-1.7); ALK PHOS 283 U/L (46-116); ALT (SGPT) 65 U/L (16-63); ANION GAP 8 (6-14); AST (SGOT) 37 U/L (15-37); BLOOD UREA NITROGEN 57 mg/dL (8-26); BUN/CREATININE RATIO 34 (6-20); CALCIUM 8.5 mg/dL (8.5-10.1); CARBON DIOXIDE 26 mmol/L (21-32); CHLORIDE 118 mmol/L (98-107); CREATININE 1.7 mg/dL (0.7-1.3); GFR 42.1; GLUCOSE 201 mg/dL (70-99); POTASSIUM 3.8 mmol/L (3.5-5.1); SODIUM 152 mmol/L (136-145); TOTAL BILIRUBIN 0.6 mg/dL (0.2-1.0); TOTAL PROTEIN 6.6 g/dL (6.4-8.2)
[2018-01-14 06:16] LABS: ADD MAN DIFF? YES; BASO # 0.1 x10^3/uL (0.0-0.2); BASO % 0 % (0-3); EOS # 0.3 x10^3/uL (0.0-0.7); EOS % 2 % (0-3); HEMATOCRIT 25.8 % (39.0-53.0); HEMOGLOBIN 8.4 g/dL (13.0-17.5); LYMPH # 1.7 x10^3/uL (1.0-4.8); LYMPH % 10 % (24-48); MEAN CORPUSCULAR HEMOGLOBIN 33 pg (25-35); MEAN CORPUSCULAR HGB CONC 33 g/dL (31-37); MEAN CORPUSCULAR VOLUME 101 fL (79-100); MONO # 1.4 x10^3/uL (0.0-1.1); MONO % 8 % (0-9); NEUT % 80 % (31-73); PLATELET COUNT 215 x10^3/uL (140-400); RED BLOOD COUNT 2.56 x10^6/uL (4.30-5.70); RED CELL DISTRIBUTION WIDTH 15.3 % (11.5-14.5); WHITE BLOOD COUNT 17.5 x10^3/uL (4.0-11.0)
[2018-01-14] MEDS: MIDAZOLAM 100mg/100ml NS BAG 100 ML IV ×2 (06:32→14:39)
[2018-01-14 07:48] LABS: BASE EXCESS ABG -1 mmol/L (-3-3); HCO3 ABG 25 mmol/L (21-28); PO2 ABG 103 mmHg (75-108); SAT O2 ABG 97 % (92-99)
[2018-01-14 07:50] LABS: PCO2 ABG 41 mmHg (35-46); PH ABG 7.42 (7.35-7.45)
[2018-01-14 07:51] LABS: FIO2 ABG 50
[2018-01-14 08:20] LABS: % ATYL 1 % (0-0); % BANDS 5 % (0-9); % EOS 2 % (0-5); % LYMPHS 18 % (24-48); % MONOS 6 % (0-10); % SEGS 68 % (35-66); PLT ESTIMATE ADEQUATE (ADEQUATE)
[2018-01-14 08:21] LABS: ANISOCYTOSIS PRESENT
[2018-01-14] MEDS: PANTOPRAZOLE IV PUSH 40 MG VIAL. IVP (09:19)
[2018-01-14] MEDS: POTASSIUM CHLORIDE 20 MEQ/15 ML ORAL LIQUID. PEG ×3 (09:19→22:16)
[2018-01-14] MEDS: IV DEXTROSE 5% 1,000 ML IV ×2 (09:20→16:31)
[2018-01-14] MEDS: MAGNESIUM SULFATE 2GM 50 ML IV (11:47)
[2018-01-14 12:39] LABS: POC GLUCOSE 236 mg/dL (70-99)
[2018-01-14] MEDS: TPN PER PHARMACY MC ×4 (12:42→12:58)
[2018-01-14] MEDS: ACETAMINOPHEN 650 MG/20.3 ML SOLUTION. PEG (13:28)
[2018-01-14] MEDS: MAGNESIUM OXIDE 400 MG TABLET PO (14:00)
[2018-01-14] MEDS: MICAFUNGIN 100 MG in IV DEXTROSE 5% 100ML 100 ML IV (14:35)
[2018-01-14 18:22] LABS: POC GLUCOSE 188 mg/dL (70-99)
[2018-01-14] MEDS: [UNRECOGNIZED DRUG - OTHER] IV (22:19)
[2018-01-14] MEDS: DEXTROSE 70% IV (22:19)
[2018-01-14] MEDS: AMINO ACID IV (22:19)
[2018-01-14] MEDS: TOTAL PARENTERAL NUTRITION IV (22:19)
[2018-01-15] MEDS: MAGNESIUM OXIDE 400 MG TABLET PO ×4 (00:19→21:17)
[2018-01-15] MEDS: ACETAMINOPHEN 650 MG/20.3 ML SOLUTION. PEG ×3 (00:19→19:49)
[2018-01-15] MEDS: INSULIN LISPRO 300 UNITS/3 ML INSULN.PEN. SQ ×4 (00:20→17:54)
[2018-01-15 00:24] LABS: POC GLUCOSE 242 mg/dL (70-99)
[2018-01-15] MEDS: MIDAZOLAM 100mg/100ml NS BAG 100 ML IV ×3 (00:24→21:18)
[2018-01-15] MEDS: PIPERACILLIN/TAZOBACTAM 2.25 GM in IV NORMAL SALINE 50ML 50 ML IV ×2 (01:18→05:43)
[2018-01-15 04:15] LABS: ADD MAN DIFF? NO
[2018-01-15 04:21] LABS: BASO # 0.2 x10^3/uL (0.0-0.2); BASO % 1 % (0-3); EOS # 0.8 x10^3/uL (0.0-0.7); EOS % 5 % (0-3); HEMATOCRIT 25.8 % (39.0-53.0); HEMOGLOBIN 8.4 g/dL (13.0-17.5); LYMPH # 1.5 x10^3/uL (1.0-4.8); LYMPH % 9 % (24-48); MEAN CORPUSCULAR HEMOGLOBIN 33 pg (25-35); MEAN CORPUSCULAR HGB CONC 33 g/dL (31-37); MEAN CORPUSCULAR VOLUME 101 fL (79-100); MONO # 1.3 x10^3/uL (0.0-1.1); MONO % 8 % (0-9); NEUT # 12.7 x10^3uL (1.8-7.7); NEUT % 77 % (31-73); PLATELET COUNT 203 x10^3/uL (140-400); RED BLOOD COUNT 2.57 x10^6/uL (4.30-5.70); RED CELL DISTRIBUTION WIDTH 14.9 % (11.5-14.5); WHITE BLOOD COUNT 16.4 x10^3/uL (4.0-11.0)
[2018-01-15 04:44] LABS: ALBUMIN 1.7 g/dL (3.4-5.0); ALBUMIN/GLOBULIN RATIO 0.4 (1.0-1.7); ALK PHOS 246 U/L (46-116); ALT (SGPT) 49 U/L (16-63); ANION GAP 7 (6-14); AST (SGOT) 21 U/L (15-37); BLOOD UREA NITROGEN 47 mg/dL (8-26); BUN/CREATININE RATIO 28 (6-20); CALCIUM 8.5 mg/dL (8.5-10.1); CARBON DIOXIDE 27 mmol/L (21-32); CHLORIDE 114 mmol/L (98-107); CREATININE 1.7 mg/dL (0.7-1.3); GFR 42.1; GLUCOSE 237 mg/dL (70-99); MAGNESIUM 2.1 mg/dL (1.8-2.4); POTASSIUM 4.4 mmol/L (3.5-5.1); SODIUM 148 mmol/L (136-145); TOTAL BILIRUBIN 0.5 mg/dL (0.2-1.0); TOTAL PROTEIN 6.5 g/dL (6.4-8.2)
[2018-01-15] MEDS: HEPARIN PF for SUB-Q USE 5,000 UNIT/0.5 ML VIAL. SQ ×3 (05:42→22:47)
[2018-01-15] MEDS: PANTOPRAZOLE IV PUSH 40 MG VIAL. IVP (07:35)
[2018-01-15] MEDS: IV DEXTROSE 5% 1,000 ML IV ×2 (07:36→13:24)
[2018-01-15 07:49] LABS: BASE EXCESS ABG 1 mmol/L (-3-3); HCO3 ABG 26 mmol/L (21-28); PCO2 ABG 43 mmHg (35-46); PO2 ABG 75 mmHg (75-108); SAT O2 ABG 94 % (92-99)
[2018-01-15] MEDS: POTASSIUM CHLORIDE 20 MEQ/15 ML ORAL LIQUID. PEG ×3 (08:28→21:17)
[2018-01-15] MEDS: PIPERACILLIN/TAZOBACTAM 3.375 GM in IV NORMAL SALINE 50ML 50 ML IV ×2 (11:13→17:45)
[2018-01-15 11:45] LABS: POC GLUCOSE 238 mg/dL (70-99)
[2018-01-15] MEDS: MICAFUNGIN 100 MG in IV DEXTROSE 5% 100ML 100 ML IV (13:21)
[2018-01-15] MEDS: TPN PER PHARMACY MC (13:26)
[2018-01-15 17:54] LABS: POC GLUCOSE 177 mg/dL (70-99)
[2018-01-15] MEDS: [UNRECOGNIZED DRUG - OTHER] IV (22:48)
[2018-01-15] MEDS: TOTAL PARENTERAL NUTRITION IV (22:48)
[2018-01-15] MEDS: DEXTROSE 70% IV (22:48)
[2018-01-15] MEDS: AMINO ACID IV (22:48)
[2018-01-16] MEDS: PIPERACILLIN/TAZOBACTAM 3.375 GM in IV NORMAL SALINE 50ML 50 ML IV ×2 (00:01→05:41)
[2018-01-16] MEDS: INSULIN LISPRO 300 UNITS/3 ML INSULN.PEN. SQ ×4 (00:02→18:30)
[2018-01-16 00:08] LABS: POC GLUCOSE 221 mg/dL (70-99)
[2018-01-16] MEDS: IV DEXTROSE 5% 1,000 ML IV ×2 (01:48→19:51)
[2018-01-16] MEDS: HEPARIN PF for SUB-Q USE 5,000 UNIT/0.5 ML VIAL. SQ ×3 (05:44→20:50)
[2018-01-16 05:59] LABS: POC GLUCOSE 187 mg/dL (70-99)
[2018-01-16 06:00] LABS: ADD MAN DIFF? NO
[2018-01-16 06:07] LABS: BASO # 0.1 x10^3/uL (0.0-0.2); BASO % 0 % (0-3); EOS # 0.8 x10^3/uL (0.0-0.7); EOS % 6 % (0-3); LYMPH # 1.6 x10^3/uL (1.0-4.8); LYMPH % 12 % (24-48); MEAN CORPUSCULAR HEMOGLOBIN 33 pg (25-35); MEAN CORPUSCULAR HGB CONC 33 g/dL (31-37); MEAN CORPUSCULAR VOLUME 100 fL (79-100); MONO % 7 % (0-9); NEUT # 10.1 x10^3uL (1.8-7.7); NEUT % 75 % (31-73); PLATELET COUNT 223 x10^3/uL (140-400); RED CELL DISTRIBUTION WIDTH 14.8 % (11.5-14.5); WHITE BLOOD COUNT 13.5 x10^3/uL (4.0-11.0)
[2018-01-16 06:14] LABS: HEMATOCRIT 20.9 % (39.0-53.0); HEMOGLOBIN 6.8 g/dL (13.0-17.5)
[2018-01-16 06:21] LABS: ANION GAP 4 (6-14); BLOOD UREA NITROGEN 42 mg/dL (8-26); CALCIUM 8.4 mg/dL (8.5-10.1); CARBON DIOXIDE 28 mmol/L (21-32); CHLORIDE 108 mmol/L (98-107); CREATININE 1.5 mg/dL (0.7-1.3); GFR 48.6; GLUCOSE 205 mg/dL (70-99); MAGNESIUM 1.8 mg/dL (1.8-2.4); PHOSPHORUS 2.9 mg/dL (2.6-4.7); POTASSIUM 4.6 mmol/L (3.5-5.1); SODIUM 140 mmol/L (136-145)
[2018-01-16 09:35] LABS: IMMEDIATE SPIN CROSSMATCH 1 2
[2018-01-16 09:39] LABS: BASE EXCESS ABG 1 mmol/L (-3-3); HCO3 ABG 25 mmol/L (21-28); PCO2 ABG 40 mmHg (35-46); PH ABG 7.42 (7.35-7.45); PO2 ABG 105 mmHg (75-108); SAT O2 ABG 98 % (92-99)
[2018-01-16] MEDS: POTASSIUM CHLORIDE 20 MEQ/15 ML ORAL LIQUID. PEG ×3 (09:51→21:23)
[2018-01-16 09:52] LABS: FIO2 ABG 50
[2018-01-16] MEDS: MAGNESIUM OXIDE 400 MG TABLET PO ×3 (09:52→21:23)
[2018-01-16] MEDS: PANTOPRAZOLE IV PUSH 40 MG VIAL. IVP (09:53)
[2018-01-16] MEDS: MEROPENEM 500 MG in IV NORMAL SALINE 50ML 50 ML IV ×3 (09:59→18:00)
[2018-01-16 11:51] LABS: IMMEDIATE SPIN CROSSMATCH 1
[2018-01-16 12:59] LABS: BASE EXCESS ABG 1 mmol/L (-3-3); HCO3 ABG 25 mmol/L (21-28); PCO2 ABG 37 mmHg (35-46); PH ABG 7.45 (7.35-7.45); PO2 ABG 85 mmHg (75-108); SAT O2 ABG 96 % (92-99)
[2018-01-16] MEDS: MICAFUNGIN 100 MG in IV DEXTROSE 5% 100ML 100 ML IV (14:00)
[2018-01-16 14:08] LABS: FIO2 ABG 50
[2018-01-16] MEDS: TPN PER PHARMACY MC (14:27)
[2018-01-16] MEDS: MICAFUNGIN 100 MG in IV NORMAL SALINE 100ML 100 ML IV (14:28)
[2018-01-16] MEDS: DEXTROSE 70% IV (21:26)
[2018-01-16] MEDS: [UNRECOGNIZED DRUG - OTHER] IV (21:26)
[2018-01-16] MEDS: AMINO ACID IV (21:26)
[2018-01-16] MEDS: TOTAL PARENTERAL NUTRITION IV (21:26)
[2018-01-17] MEDS: MEROPENEM 500 MG in IV NORMAL SALINE 50ML 50 ML IV ×4 (00:25→18:03)
[2018-01-17] MEDS: INSULIN LISPRO 300 UNITS/3 ML INSULN.PEN. SQ ×4 (00:27→18:07)
[2018-01-17 00:30] LABS: POC GLUCOSE 294 mg/dL (70-99)
[2018-01-17 00:30] LABS: POC GLUCOSE 145 mg/dL (70-99)
[2018-01-17] MEDS: HEPARIN PF for SUB-Q USE 5,000 UNIT/0.5 ML VIAL. SQ (05:32)
[2018-01-17 05:56] LABS: POC GLUCOSE 198 mg/dL (70-99)
[2018-01-17 06:01] LABS: ADD MAN DIFF? NO
[2018-01-17 06:09] LABS: BASO # 0.1 x10^3/uL (0.0-0.2); BASO % 1 % (0-3); EOS # 0.6 x10^3/uL (0.0-0.7); EOS % 6 % (0-3); HEMATOCRIT 31.1 % (39.0-53.0); HEMOGLOBIN 10.8 g/dL (13.0-17.5); LYMPH # 1.4 x10^3/uL (1.0-4.8); LYMPH % 13 % (24-48); MEAN CORPUSCULAR HEMOGLOBIN 33 pg (25-35); MEAN CORPUSCULAR HGB CONC 35 g/dL (31-37); MONO # 0.9 x10^3/uL (0.0-1.1); MONO % 9 % (0-9); NEUT # 7.8 x10^3uL (1.8-7.7); NEUT % 72 % (31-73); PLATELET COUNT 234 x10^3/uL (140-400); RED BLOOD COUNT 3.32 x10^6/uL (4.30-5.70); RED CELL DISTRIBUTION WIDTH 16.2 % (11.5-14.5); WHITE BLOOD COUNT 10.8 x10^3/uL (4.0-11.0)
[2018-01-17 06:22] LABS: MEAN CORPUSCULAR VOLUME 96 fL (79-100)
[2018-01-17 06:26] LABS: ANION GAP 9 (6-14); BLOOD UREA NITROGEN 37 mg/dL (8-26); CALCIUM 8.1 mg/dL (8.5-10.1); CARBON DIOXIDE 27 mmol/L (21-32); CHLORIDE 103 mmol/L (98-107); CREATININE 1.2 mg/dL (0.7-1.3); GFR 62.9; GLUCOSE 208 mg/dL (70-99); MAGNESIUM 1.7 mg/dL (1.8-2.4); PHOSPHORUS 2.9 mg/dL (2.6-4.7); POTASSIUM 4.4 mmol/L (3.5-5.1); SODIUM 139 mmol/L (136-145)
[2018-01-17] MEDS: PANTOPRAZOLE IV PUSH 40 MG VIAL. IVP (10:00)
[2018-01-17] MEDS: POTASSIUM CHLORIDE 20 MEQ/15 ML ORAL LIQUID. PEG ×3 (10:00→21:24)
[2018-01-17] MEDS: MAGNESIUM OXIDE 400 MG TABLET PO ×3 (10:01→21:24)
[2018-01-17] MEDS: ACETAMINOPHEN 650 MG/20.3 ML SOLUTION. PEG (12:43)
[2018-01-17 13:17] LABS: POC GLUCOSE 248 mg/dL (70-99)
[2018-01-17] MEDS: TPN PER PHARMACY MC ×2 (13:44→13:56)
[2018-01-17] MEDS: MICAFUNGIN 100 MG in IV NORMAL SALINE 100ML 100 ML IV (14:25)
[2018-01-17 18:23] LABS: POC GLUCOSE 213 mg/dL (70-99)
[2018-01-17] MEDS: AMINO ACID IV (21:25)
[2018-01-17] MEDS: DEXTROSE 70% IV (21:25)
[2018-01-17] MEDS: TOTAL PARENTERAL NUTRITION IV (21:25)
[2018-01-17] MEDS: [UNRECOGNIZED DRUG - OTHER] IV (21:25)
[2018-01-18] MEDS: MEROPENEM 500 MG in IV NORMAL SALINE 50ML 50 ML IV ×5 (00:18→23:46)
[2018-01-18] MEDS: INSULIN LISPRO 300 UNITS/3 ML INSULN.PEN. SQ ×5 (00:21→23:47)
[2018-01-18 00:24] LABS: POC GLUCOSE 206 mg/dL (70-99)
[2018-01-18 05:27] LABS: POC GLUCOSE 209 mg/dL (70-99)
[2018-01-18 05:29] LABS: ADD MAN DIFF? NO
[2018-01-18 05:32] LABS: BASO # 0.1 x10^3/uL (0.0-0.2); BASO % 1 % (0-3); EOS # 0.5 x10^3/uL (0.0-0.7); EOS % 5 % (0-3); HEMATOCRIT 32.5 % (39.0-53.0); HEMOGLOBIN 11.2 g/dL (13.0-17.5); LYMPH # 1.4 x10^3/uL (1.0-4.8); LYMPH % 14 % (24-48); MEAN CORPUSCULAR HEMOGLOBIN 32 pg (25-35); MEAN CORPUSCULAR HGB CONC 35 g/dL (31-37); MEAN CORPUSCULAR VOLUME 93 fL (79-100); MONO # 0.7 x10^3/uL (0.0-1.1); MONO % 7 % (0-9); NEUT # 6.9 x10^3uL (1.8-7.7); NEUT % 73 % (31-73); PLATELET COUNT 227 x10^3/uL (140-400); RED BLOOD COUNT 3.51 x10^6/uL (4.30-5.70); RED CELL DISTRIBUTION WIDTH 15.4 % (11.5-14.5); WHITE BLOOD COUNT 9.5 x10^3/uL (4.0-11.0)
[2018-01-18 06:27] LABS: ALBUMIN 1.7 g/dL (3.4-5.0); ALBUMIN/GLOBULIN RATIO 0.3 (1.0-1.7); ALK PHOS 236 U/L (46-116); ALT (SGPT) 38 U/L (16-63); ANION GAP 8 (6-14); AST (SGOT) 33 U/L (15-37); BLOOD UREA NITROGEN 35 mg/dL (8-26); BUN/CREATININE RATIO 32 (6-20); CALCIUM 8.5 mg/dL (8.5-10.1); CARBON DIOXIDE 27 mmol/L (21-32); CHLORIDE 102 mmol/L (98-107); CREATININE 1.1 mg/dL (0.7-1.3); GFR 69.5; GLUCOSE 228 mg/dL (70-99); SODIUM 137 mmol/L (136-145); TOTAL BILIRUBIN 0.4 mg/dL (0.2-1.0)
[2018-01-18] MEDS: POTASSIUM CHLORIDE 20 MEQ/15 ML ORAL LIQUID. PEG ×3 (08:40→20:38)
[2018-01-18] MEDS: PANTOPRAZOLE IV PUSH 40 MG VIAL. IVP (08:41)
[2018-01-18] MEDS: MAGNESIUM OXIDE 400 MG TABLET PO ×3 (08:41→20:38)
[2018-01-18 11:47] LABS: POC GLUCOSE 225 mg/dL (70-99)
[2018-01-18] MEDS: TPN PER PHARMACY MC (13:36)
[2018-01-18] MEDS: MICAFUNGIN 100 MG in IV NORMAL SALINE 100ML 100 ML IV (14:00)
[2018-01-18 18:46] LABS: POC GLUCOSE 207 mg/dL (70-99)
[2018-01-18] MEDS: [UNRECOGNIZED DRUG - OTHER] IV (21:21)
[2018-01-18] MEDS: AMINO ACID IV (21:21)
[2018-01-18] MEDS: DEXTROSE 70% IV (21:21)
[2018-01-18] MEDS: TOTAL PARENTERAL NUTRITION IV (21:21)
[2018-01-19 04:13] LABS: POC GLUCOSE 195 mg/dL (70-99)
[2018-01-19] MEDS: MEROPENEM 500 MG in IV NORMAL SALINE 50ML 50 ML IV ×3 (05:43→17:49)
[2018-01-19] MEDS: INSULIN LISPRO 300 UNITS/3 ML INSULN.PEN. SQ ×3 (05:44→17:56)
[2018-01-19 06:23] LABS: PHOSPHORUS 3.2 mg/dL (2.6-4.7)
[2018-01-19 06:26] LABS: ANION GAP 11 (6-14); BLOOD UREA NITROGEN 35 mg/dL (8-26); CALCIUM 8.2 mg/dL (8.5-10.1); CARBON DIOXIDE 24 mmol/L (21-32); CHLORIDE 102 mmol/L (98-107); GFR 77.6; GLUCOSE 207 mg/dL (70-99); POTASSIUM 4.3 mmol/L (3.5-5.1); SODIUM 137 mmol/L (136-145)
[2018-01-19] MEDS: PANTOPRAZOLE IV PUSH 40 MG VIAL. IVP (08:12)
[2018-01-19] MEDS: POTASSIUM CHLORIDE 20 MEQ/15 ML ORAL LIQUID. PEG ×3 (08:12→21:15)
[2018-01-19] MEDS: MAGNESIUM OXIDE 400 MG TABLET PO ×3 (08:12→21:15)
[2018-01-19 09:21] LABS: POC GLUCOSE 185 mg/dL (70-99)
[2018-01-19 12:11] LABS: POC GLUCOSE 196 mg/dL (70-99)
[2018-01-19] MEDS: TPN PER PHARMACY MC (12:23)
[2018-01-19] MEDS: MICAFUNGIN 100 MG in IV NORMAL SALINE 100ML 100 ML IV (13:32)
[2018-01-19] MEDS: AMINO ACID IV (21:21)
[2018-01-19] MEDS: [UNRECOGNIZED DRUG - OTHER] IV (21:21)
[2018-01-19] MEDS: TOTAL PARENTERAL NUTRITION IV (21:21)
[2018-01-19] MEDS: DEXTROSE 70% IV (21:21)
[2018-01-20] MEDS: INSULIN LISPRO 300 UNITS/3 ML INSULN.PEN. SQ ×4 (00:30→18:29)
[2018-01-20] MEDS: MEROPENEM 500 MG in IV NORMAL SALINE 50ML 50 ML IV ×4 (00:47→18:06)
[2018-01-20 01:05] LABS: POC GLUCOSE 189 mg/dL (70-99)
[2018-01-20 01:05] LABS: POC GLUCOSE 166 mg/dL (70-99)
[2018-01-20 06:32] LABS: ADD MAN DIFF? NO
[2018-01-20 06:35] LABS: POC GLUCOSE 211 mg/dL (70-99)
[2018-01-20 06:38] LABS: BASO # 0.1 x10^3/uL (0.0-0.2); BASO % 1 % (0-3); EOS # 0.5 x10^3/uL (0.0-0.7); EOS % 4 % (0-3); HEMATOCRIT 34.6 % (39.0-53.0); HEMOGLOBIN 11.9 g/dL (13.0-17.5); LYMPH # 1.8 x10^3/uL (1.0-4.8); LYMPH % 16 % (24-48); MEAN CORPUSCULAR HEMOGLOBIN 32 pg (25-35); MEAN CORPUSCULAR HGB CONC 34 g/dL (31-37); MEAN CORPUSCULAR VOLUME 93 fL (79-100); MONO # 0.8 x10^3/uL (0.0-1.1); MONO % 7 % (0-9); NEUT # 7.9 x10^3uL (1.8-7.7); NEUT % 72 % (31-73); PLATELET COUNT 260 x10^3/uL (140-400); RED BLOOD COUNT 3.71 x10^6/uL (4.30-5.70); RED CELL DISTRIBUTION WIDTH 15.4 % (11.5-14.5)
[2018-01-20 06:59] LABS: ALBUMIN/GLOBULIN RATIO 0.4 (1.0-1.7); ALK PHOS 286 U/L (46-116); ALT (SGPT) 101 U/L (16-63); ANION GAP 6 (6-14); AST (SGOT) 77 U/L (15-37); BLOOD UREA NITROGEN 35 mg/dL (8-26); BUN/CREATININE RATIO 35 (6-20); CALCIUM 8.8 mg/dL (8.5-10.1); CARBON DIOXIDE 26 mmol/L (21-32); CHLORIDE 101 mmol/L (98-107); GFR 77.6; GLUCOSE 201 mg/dL (70-99); MAGNESIUM 1.9 mg/dL (1.8-2.4); POTASSIUM 4.5 mmol/L (3.5-5.1); SODIUM 133 mmol/L (136-145); TOTAL BILIRUBIN 0.3 mg/dL (0.2-1.0); TOTAL PROTEIN 7.7 g/dL (6.4-8.2)
[2018-01-20] MEDS: PANTOPRAZOLE IV PUSH 40 MG VIAL. IVP (09:38)
[2018-01-20] MEDS: MAGNESIUM OXIDE 400 MG TABLET PO ×3 (09:39→21:14)
[2018-01-20] MEDS: POTASSIUM CHLORIDE 20 MEQ/15 ML ORAL LIQUID. PEG ×3 (09:39→21:14)
[2018-01-20 12:20] LABS: POC GLUCOSE 185 mg/dL (70-99)
[2018-01-20] MEDS: TPN PER PHARMACY MC (13:46)
[2018-01-20] MEDS: MICAFUNGIN 100 MG in IV NORMAL SALINE 100ML 100 ML IV (14:32)
[2018-01-20 18:22] LABS: POC GLUCOSE 166 mg/dL (70-99)
[2018-01-20] MEDS: MIRTAZAPINE 7.5 MG TABLET. PO (21:14)
[2018-01-20] MEDS: TOTAL PARENTERAL NUTRITION IV (21:17)
[2018-01-20] MEDS: DEXTROSE 70% IV (21:17)
[2018-01-20] MEDS: [UNRECOGNIZED DRUG - OTHER] IV (21:17)
[2018-01-20] MEDS: AMINO ACID IV (21:17)
[2018-01-21] MEDS: MEROPENEM 500 MG in IV NORMAL SALINE 50ML 50 ML IV ×6 (00:20→23:40)
[2018-01-21] MEDS: INSULIN LISPRO 300 UNITS/3 ML INSULN.PEN. SQ ×4 (00:30→18:19)
[2018-01-21 00:52] LABS: POC GLUCOSE 136 mg/dL (70-99)
[2018-01-21 06:47] LABS: ANION GAP 8 (6-14); BLOOD UREA NITROGEN 35 mg/dL (8-26); CALCIUM 9.2 mg/dL (8.5-10.1); CARBON DIOXIDE 28 mmol/L (21-32); CHLORIDE 101 mmol/L (98-107); GFR 77.6; GLUCOSE 173 mg/dL (70-99); POTASSIUM 4.5 mmol/L (3.5-5.1); SODIUM 137 mmol/L (136-145)
[2018-01-21] MEDS: PANTOPRAZOLE IV PUSH 40 MG VIAL. IVP (08:49)
[2018-01-21] MEDS: POTASSIUM CHLORIDE 20 MEQ/15 ML ORAL LIQUID. PEG ×3 (08:49→21:28)
[2018-01-21] MEDS: MAGNESIUM OXIDE 400 MG TABLET PO ×3 (08:49→21:28)
[2018-01-21] MEDS: ACETAMINOPHEN 650 MG/20.3 ML SOLUTION. PEG ×2 (10:15→21:28)
[2018-01-21 12:04] LABS: POC GLUCOSE 224 mg/dL (70-99)
[2018-01-21] MEDS: TPN PER PHARMACY MC (12:34)
[2018-01-21] MEDS: MICAFUNGIN 100 MG in IV NORMAL SALINE 100ML 100 ML IV (14:49)
[2018-01-21 18:26] LABS: POC GLUCOSE 150 mg/dL (70-99)
[2018-01-21] MEDS: MIRTAZAPINE 7.5 MG TABLET. PO (21:28)
[2018-01-21] MEDS: DEXTROSE 70% IV (22:03)
[2018-01-21] MEDS: [UNRECOGNIZED DRUG - OTHER] IV (22:03)
[2018-01-21] MEDS: AMINO ACID IV (22:03)
[2018-01-21] MEDS: TOTAL PARENTERAL NUTRITION IV (22:03)
[2018-01-21 22:34] LABS: POC GLUCOSE 166 mg/dL (70-99)
[2018-01-22] MEDS: INSULIN LISPRO 300 UNITS/3 ML INSULN.PEN. SQ ×5 (00:30→23:57)
[2018-01-22] MEDS: MEROPENEM 500 MG in IV NORMAL SALINE 50ML 50 ML IV (05:39)
[2018-01-22 05:50] LABS: POC GLUCOSE 166 mg/dL (70-99)
[2018-01-22] MEDS: PANTOPRAZOLE IV PUSH 40 MG VIAL. IVP (08:53)
[2018-01-22] MEDS: MAGNESIUM OXIDE 400 MG TABLET PO (08:54)
[2018-01-22] MEDS: POTASSIUM CHLORIDE 20 MEQ/15 ML ORAL LIQUID. PEG (08:54)
[2018-01-22 11:17] LABS: HEMATOCRIT 35.6 % (39.0-53.0); HEMOGLOBIN 12.3 g/dL (13.0-17.5); MEAN CORPUSCULAR HEMOGLOBIN 33 pg (25-35); MEAN CORPUSCULAR HGB CONC 35 g/dL (31-37); MEAN CORPUSCULAR VOLUME 95 fL (79-100); PLATELET COUNT 324 x10^3/uL (140-400); RED BLOOD COUNT 3.75 x10^6/uL (4.30-5.70); RED CELL DISTRIBUTION WIDTH 15.8 % (11.5-14.5); WHITE BLOOD COUNT 8.7 x10^3/uL (4.0-11.0)
[2018-01-22 11:29] LABS: ALBUMIN 2.5 g/dL (3.4-5.0); ALBUMIN/GLOBULIN RATIO 0.4 (1.0-1.7); ALK PHOS 342 U/L (46-116); ALT (SGPT) 117 U/L (16-63); ANION GAP 8 (6-14); AST (SGOT) 69 U/L (15-37); BLOOD UREA NITROGEN 36 mg/dL (8-26); BUN/CREATININE RATIO 33 (6-20); CALCIUM 9.2 mg/dL (8.5-10.1); CARBON DIOXIDE 26 mmol/L (21-32); CHLORIDE 99 mmol/L (98-107); CREATININE 1.1 mg/dL (0.7-1.3); GFR 69.5; GLUCOSE 236 mg/dL (70-99); SODIUM 133 mmol/L (136-145); TOTAL BILIRUBIN 0.3 mg/dL (0.2-1.0); TOTAL PROTEIN 8.5 g/dL (6.4-8.2)
[2018-01-22] MEDS: BARIUM SULFATE 40% (APPLE) 148 GM PWD. PO (12:08)
[2018-01-22 12:27] LABS: POC GLUCOSE 202 mg/dL (70-99)
[2018-01-22] MEDS: DULoxetine HCL 30 MG CAPSULE.DR PO (14:55)
[2018-01-22 18:19] LABS: POC GLUCOSE 134 mg/dL (70-99)
[2018-01-22] MEDS: ONDANSETRON PF 4 MG/2 ML VIAL. IV (19:46)
[2018-01-22] MEDS: MIRTAZAPINE 7.5 MG TABLET. PO (20:15)
[2018-01-22] MEDS: METOCLOPRAMIDE HCL 10 MG/2 ML VIAL. IV (20:16)
[2018-01-22 22:33] LABS: POC GLUCOSE 104 mg/dL (70-99)
[2018-01-23] MEDS: ONDANSETRON PF 4 MG/2 ML VIAL. IV (03:47)
[2018-01-23] MEDS: PANTOPRAZOLE IV PUSH 40 MG VIAL. IVP (05:38)
[2018-01-23] MEDS: METOCLOPRAMIDE HCL 10 MG/2 ML VIAL. IV ×2 (05:38→08:26)
[2018-01-23] MEDS: INSULIN LISPRO 300 UNITS/3 ML INSULN.PEN. SQ ×2 (05:44→08:24)
[2018-01-23 05:58] LABS: POC GLUCOSE 118 mg/dL (70-99)
[2018-01-23] MEDS: DULoxetine HCL 30 MG CAPSULE.DR PO (08:26)
[2018-01-24] MEDS ORDERED: PANTOPRAZOLE 40 MG TABLET.DR. PO (07:30)
== END 2018-01-23 15:43 | DRG 871 ==
LOC: 2 SOUTH 01-19 16:49 → ER 07:03 → 1 WEST ICU 10:08
PROC: 5A1945Z Respiratory Ventilation, 24-96 Consecutive Hours (ICD-10-PCS; principal; 2018-01-13)
PROC: 0BH17EZ Insertion of Endotracheal Airway into Trachea, Via Natural or Artificial Opening (ICD-10-PCS; 2018-01-13)
PROC: 0W9930Z Drainage of Right Pleural Cavity with Drainage Device, Percutaneous Approach (ICD-10-PCS; 2018-01-13)
PROC: 0W9B30Z Drainage of Left Pleural Cavity with Drainage Device, Percutaneous Approach (ICD-10-PCS; 2018-01-13)
PROC: 0BJ08ZZ Inspection of Tracheobronchial Tree, Via Natural or Artificial Opening Endoscopic (ICD-10-PCS; 2018-01-13)
PROC: 30233N1 Transfusion of Nonautologous Red Blood Cells into Peripheral Vein, Percutaneous Approach (ICD-10-PCS; 2018-01-16)
DX: A41.9 Sepsis, unspecified organism (principal); G93.40 Encephalopathy, unspecified; J18.9 Pneumonia, unspecified organism; J96.21 Acute and chronic respiratory failure with hypoxia; J96.22 Acute and chronic respiratory failure with hypercapnia; K85.20 Alcohol induced acute pancreatitis without necrosis or infection; N17.0 Acute kidney failure with tubular necrosis; J93.9 Pneumothorax, unspecified; G72.81 Critical illness myopathy; E87.0 Hyperosmolality and hypernatremia; E87.1 Hypo-osmolality and hyponatremia; F10.239 Alcohol dependence with withdrawal, unspecified; T79.7XXA Traumatic subcutaneous emphysema, initial encounter; K56.0 Paralytic ileus; Z99.11 Dependence on respirator [ventilator] status; D64.9 Anemia, unspecified; E11.22 Type 2 diabetes mellitus with diabetic chronic kidney disease; K21.9 Gastro-esophageal reflux disease without esophagitis; K31.84 Gastroparesis; I12.9 Hypertensive chronic kidney disease with stage 1 through stage 4 chronic kidney disease, or unspecified chronic kidney disease; E11.43 Type 2 diabetes mellitus with diabetic autonomic (poly)neuropathy; E87.6 Hypokalemia; F31.9 Bipolar disorder, unspecified; D69.6 Thrombocytopenia, unspecified; E66.9 Obesity, unspecified; G47.33 Obstructive sleep apnea (adult) (pediatric); N18.9 Chronic kidney disease, unspecified; R13.13 Dysphagia, pharyngeal phase; X58.XXXA Exposure to other specified factors, initial encounter; Z72.0 Tobacco use; Z99.2 Dependence on renal dialysis; Z86.61 Personal history of infections of the central nervous system; Z68.23 Body mass index [BMI] 23.0-23.9, adult
CPT/HCPCS: 31500; 31622; 32551; 36415; 36600; 70490; 71045; 71250; 74230; 80048; 80053; 82805; 82962; 83605; 83735; 84100; 85007; 85025; 85027; 85610; 86850; 86900; 86901; 86920; 87040; 87070; 87086; 87205; 87641; 92526-GN; 92610-GN; 92611-GN; 93005; 94002; 94003; 96360; 96361; 97110-GO; 97110-GP; 97116-GP; 97163-GP; 97167-GO; 97530-GO; 97530-GP; 97535-GO; 99291; 99292; C9113; J0610; J1815; J2020; J2185; J2248; J2250; J2405; J2543; J2704; J2765; J3010; J3475; J7030; P9016